=== PATIENT | female | born 1935 | race Caucasian/White ===

== ENCOUNTER 2017-07-05 14:45 | Emergency (ER) | payer BC, MEDICARE | END 2017-07-05 15:35 | disposition home or self-care (01) | LOC: ER 15:35 | DX: R21 Rash and other nonspecific skin eruption (principal); I10 Essential (primary) hypertension; E11.9 Type 2 diabetes mellitus without complications; I48.91 Unspecified atrial fibrillation | CPT/HCPCS: 99283 ==

== ENCOUNTER 2017-07-29 13:47 | Inpatient (IN) | payer BC ==
[2017-07-29 14:24] LABS: ADD MAN DIFF? NO
[2017-07-29 14:26] LABS: BASO # 0.1 x10^3/uL (0.0-0.2); BASO % 1 % (0-3); EOS % 11 % (0-3); HEMATOCRIT 31.1 % (36.0-47.0); HEMOGLOBIN 10.4 g/dL (12.0-15.5); LYMPH # 1.1 x10^3/uL (1.0-4.8); LYMPH % 12 % (24-48); MEAN CORPUSCULAR HEMOGLOBIN 31 pg (25-35); MEAN CORPUSCULAR HGB CONC 34 g/dL (31-37); MEAN CORPUSCULAR VOLUME 92 fL (79-100); MONO # 0.8 x10^3/uL (0.0-1.1); MONO % 8 % (0-9); NEUT # 6.7 x10^3uL (1.8-7.7); NEUT % 69 % (31-73); PLATELET COUNT 223 x10^3/uL (140-400); RED BLOOD COUNT 3.38 x10^6/uL (3.50-5.40); RED CELL DISTRIBUTION WIDTH 16.3 % (11.5-14.5); WHITE BLOOD COUNT 9.8 x10^3/uL (4.0-11.0)
[2017-07-29 14:37] LABS: INR 1.4 (0.8-1.1); PARTIAL THROMBOPLASTIN TIME 35 SEC (24-38); PROTHROMBIN TIME PATIENT 16.4 SEC (11.7-14.0)
[2017-07-29 14:45] LABS: ANION GAP 9 (6-14); BLOOD UREA NITROGEN 31 mg/dL (7-20); BUN/CREATININE RATIO 21 (6-20); CALCIUM 8.6 mg/dL (8.5-10.1); CARBON DIOXIDE 25 mmol/L (21-32); CHLORIDE 103 mmol/L (98-107); CREATININE 1.5 mg/dL (0.6-1.0); GFR 33.3; GLUCOSE 169 mg/dL (70-99); POTASSIUM 5.4 mmol/L (3.5-5.1); SODIUM 137 mmol/L (136-145)
[2017-07-29] MEDS: ATROPINE 0.5 MG/5 ML DISP.SYRIN. IV ×2 (14:45→15:00)
[2017-07-29 14:47] LABS: ETHANOL < 10 mg/dL (0-10)
[2017-07-29 14:51] LABS: ALBUMIN 3.4 g/dL (3.4-5.0); ALBUMIN/GLOBULIN RATIO 1.1 (1.0-1.7); ALK PHOS 74 U/L (46-116); ALT (SGPT) 49 U/L (14-59); AST (SGOT) 52 U/L (15-37); CREATINE KINASE 46 U/L (26-192); LIPASE 140 U/L (73-393); MAGNESIUM 2.2 mg/dL (1.8-2.4); TOTAL BILIRUBIN 0.5 mg/dL (0.2-1.0); TOTAL PROTEIN 6.4 g/dL (6.4-8.2)
[2017-07-29 14:54] LABS: NT-PRO BNP 4261 pg/mL (0-449)
[2017-07-29 14:56] LABS: THYROID STIM HORMONE (TSH) 3.923 uIU/mL (0.358-3.74)
[2017-07-29] MEDS: IV NORMAL SALINE 1000ML BAG 1,000 ML IV (14:57)
[2017-07-29 15:14] LABS: LACTIC ACID 2.7 mmol/L (0.4-2.0)
[2017-07-29] MEDS ORDERED: ONDANSETRON PF 4 MG/2 ML VIAL. IV (15:15)
[2017-07-29 15:18] LABS: DIG 0.6 ng/mL (0.9-2.0)
[2017-07-29] MEDS ORDERED: CALCIUM GLUCONATE 100 MG/ML VIAL for DOSE IN MG. IVP (16:00)
[2017-07-29] MEDS: NOREPINEPHRIN PREMIX 250 ML IV (16:15)
[2017-07-29] MEDS: CALCIUM GLUCONATE 1,000 MG/10 ML VIAL. IV (17:33)
[2017-07-29] MEDS: SODIUM POLYSTYRENE SULFONATE 15 GM/60 ML ORAL.SUSP. PO (17:33)
[2017-07-29] MEDS ORDERED: DEXTROSE 50% 25 GM / 50ML DISP.SYRIN. IV (18:45)
[2017-07-29] MEDS ORDERED: APIXABAN 5 MG TABLET. PO (21:00)
[2017-07-29] MEDS ORDERED: CEFPODOXIME PROXETIL 100 MG TABLET. PO (21:00)
[2017-07-29] MEDS ORDERED: METOPROLOL TART IMMED RELEASE 50 MG TABLET. PO (21:00)
[2017-07-29] MEDS: APIXABAN 2.5 MG TABLET. PO (21:26)
[2017-07-29] MEDS: SIMVASTATIN 10 MG TABLET PO (21:26)
[2017-07-29 21:29] LABS: POC GLUCOSE 144 mg/dL (70-99)
[2017-07-29 22:12] LABS: TROPONINI < 0.017 ng/mL (0.000-0.055)
[2017-07-30 03:49] LABS: ANION GAP 9 (6-14); BLOOD UREA NITROGEN 28 mg/dL (7-20); CALCIUM 8.6 mg/dL (8.5-10.1); CARBON DIOXIDE 24 mmol/L (21-32); CHLORIDE 105 mmol/L (98-107); CREATININE 1.5 mg/dL (0.6-1.0); GFR 33.3; GLUCOSE 132 mg/dL (70-99); POTASSIUM 4.3 mmol/L (3.5-5.1); SODIUM 138 mmol/L (136-145)
[2017-07-30 03:58] LABS: TROPONINI < 0.017 ng/mL (0.000-0.055)
[2017-07-30 04:03] LABS: BASO # 0.1 x10^3/uL (0.0-0.2); BASO % 1 % (0-3); EOS # 1.2 x10^3/uL (0.0-0.7); EOS % 12 % (0-3); HEMATOCRIT 30.6 % (36.0-47.0); HEMOGLOBIN 10.3 g/dL (12.0-15.5); LYMPH # 1.3 x10^3/uL (1.0-4.8); LYMPH % 13 % (24-48); MEAN CORPUSCULAR HEMOGLOBIN 31 pg (25-35); MEAN CORPUSCULAR HGB CONC 34 g/dL (31-37); MEAN CORPUSCULAR VOLUME 91 fL (79-100); MONO # 0.9 x10^3/uL (0.0-1.1); MONO % 9 % (0-9); NEUT # 6.6 x10^3uL (1.8-7.7); NEUT % 66 % (31-73); PLATELET COUNT 221 x10^3/uL (140-400); RED BLOOD COUNT 3.35 x10^6/uL (3.50-5.40); RED CELL DISTRIBUTION WIDTH 16.9 % (11.5-14.5)
[2017-07-30 04:06] LABS: ADD MAN DIFF? YES
[2017-07-30 04:32] LABS: LACTIC ACID 1.7 mmol/L (0.4-2.0)
[2017-07-30] MEDS: INSULIN ASPART 300 UNITS/3 ML INSULN.PEN SQ ×3 (08:00→17:00)
[2017-07-30 08:21] LABS: POC GLUCOSE 116 mg/dL (70-99)
[2017-07-30] MEDS: APIXABAN 2.5 MG TABLET. PO (09:52)
[2017-07-30] MEDS: PANTOPRAZOLE 40 MG TABLET.DR. PO (09:52)
[2017-07-30 10:05] LABS: % BANDS 1 % (0-9); % EOS 11 % (0-5); % LYMPHS 12 % (24-48); % MONOS 5 % (0-10); % MYELOS 1 % (0-0); % SEGS 70 % (35-66)
[2017-07-30 10:06] LABS: PLT ESTIMATE ADEQUATE (ADEQUATE)
[2017-07-30 11:54] LABS: POC GLUCOSE 126 mg/dL (70-99)
[2017-07-30 16:30] LABS: POC GLUCOSE 123 mg/dL (70-99)
[2017-07-30] MEDS: SIMVASTATIN 10 MG TABLET PO (20:18)
[2017-07-30 21:23] LABS: POC GLUCOSE 131 mg/dL (70-99)
[2017-07-31] MEDS: METOPROLOL TART IMMED RELEASE 25 MG TABLET. PO ×3 (02:51→20:39)
[2017-07-31 07:37] LABS: POC GLUCOSE 124 mg/dL (70-99)
[2017-07-31] MEDS: INSULIN ASPART 300 UNITS/3 ML INSULN.PEN SQ ×3 (08:00→16:54)
[2017-07-31] MEDS: PANTOPRAZOLE 40 MG TABLET.DR. PO (08:20)
[2017-07-31 11:47] LABS: POC GLUCOSE 181 mg/dL (70-99)
[2017-07-31] MEDS: DIGOXIN IV 500 MCG/2 ML AMPUL. IV (16:51)
[2017-07-31 17:07] LABS: POC GLUCOSE 139 mg/dL (70-99)
[2017-07-31] MEDS: SIMVASTATIN 10 MG TABLET PO (20:39)
[2017-07-31 21:22] LABS: POC GLUCOSE 142 mg/dL (70-99)
[2017-08-01 07:27] LABS: POC GLUCOSE 120 mg/dL (70-99)
[2017-08-01] MEDS: PANTOPRAZOLE 40 MG TABLET.DR. PO (07:30)
[2017-08-01] MEDS: INSULIN ASPART 300 UNITS/3 ML INSULN.PEN SQ ×3 (08:00→17:00)
[2017-08-01] MEDS: METOPROLOL TART IMMED RELEASE 25 MG TABLET. PO ×3 (09:00→20:59)
[2017-08-01] MEDS ORDERED: fentaNYL PF VIAL 250 MCG/5 ML VIAL (09:40)
[2017-08-01] MEDS ORDERED: MIDAZOLAM HCL/PF 5 MG/5 ML VIAL. (09:40)
[2017-08-01] MEDS ORDERED: LIDOCAINE 2%/EPI 1:100,000 20 ML VIAL. (09:56)
[2017-08-01] MEDS: LIDOCAINE 2%/EPI 1:100,000 20 ML VIAL. IJ (10:30)
[2017-08-01] MEDS: BACITRACIN 50,000 UNIT in IV NORMAL SALINE 250ML 250 ML IRR (10:46)
[2017-08-01] MEDS: fentaNYL PF VIAL 250 MCG/5 ML VIAL IV (10:47)
[2017-08-01] MEDS: MIDAZOLAM HCL/PF 5 MG/5 ML VIAL. IV (10:48)
[2017-08-01] MEDS: dilTIAZem IV PUSH 25 MG/5 ML VIAL IVP (11:15)
[2017-08-01] MEDS: DIGOXIN IV 500 MCG/2 ML AMPUL. IV (12:18)
[2017-08-01] MEDS: dilTIAZem VIAL 125 MG in IV DEXTROSE 5% 100 ML IV ×2 (12:19→22:31)
[2017-08-01 12:20] LABS: ANION GAP 10 (6-14); BLOOD UREA NITROGEN 15 mg/dL (7-20); CALCIUM 8.6 mg/dL (8.5-10.1); CARBON DIOXIDE 26 mmol/L (21-32); CHLORIDE 106 mmol/L (98-107); CREATININE 1.3 mg/dL (0.6-1.0); GFR 39.3; GLUCOSE 157 mg/dL (70-99); MAGNESIUM 1.9 mg/dL (1.8-2.4); POTASSIUM 3.7 mmol/L (3.5-5.1); SODIUM 142 mmol/L (136-145)
[2017-08-01 12:40] LABS: POC GLUCOSE 159 mg/dL (70-99)
[2017-08-01] MEDS ORDERED: METOPROLOL TART IMMED RELEASE 50 MG TABLET. PO (13:00)
[2017-08-01] MEDS: IV NORMAL SALINE 1000ML BAG 1,000 ML IV (15:05)
[2017-08-01 17:40] LABS: POC GLUCOSE 118 mg/dL (70-99)
[2017-08-01] MEDS: SIMVASTATIN 10 MG TABLET PO (20:59)
[2017-08-01 21:05] LABS: POC GLUCOSE 130 mg/dL (70-99)
[2017-08-02] MEDS: HYDROcodone/APAP 7.5/325MG 1 TAB TABLET PO (00:55)
[2017-08-02] MEDS: METOPROLOL TART IMMED RELEASE 25 MG TABLET. PO ×3 (00:55→11:16)
[2017-08-02] MEDS: PANTOPRAZOLE 40 MG TABLET.DR. PO (06:00)
[2017-08-02 07:33] LABS: POC GLUCOSE 147 mg/dL (70-99)
[2017-08-02] MEDS: INSULIN ASPART 300 UNITS/3 ML INSULN.PEN SQ ×3 (08:00→17:12)
[2017-08-02] MEDS: ONDANSETRON PF 4 MG/2 ML VIAL. IV (09:17)
[2017-08-02] MEDS: APIXABAN 5 MG TABLET. PO ×2 (11:15→19:08)
[2017-08-02 12:42] LABS: POC GLUCOSE 175 mg/dL (70-99)
[2017-08-02 17:10] LABS: POC GLUCOSE 125 mg/dL (70-99)
[2017-08-02] MEDS: SIMVASTATIN 10 MG TABLET PO (20:15)
[2017-08-02] MEDS: METOPROLOL TART IMMED RELEASE 50 MG TABLET. PO (20:17)
[2017-08-02 20:32] LABS: POC GLUCOSE 143 mg/dL (70-99)
[2017-08-03 08:39] LABS: POC GLUCOSE 127 mg/dL (70-99)
[2017-08-03] MEDS: INSULIN ASPART 300 UNITS/3 ML INSULN.PEN SQ ×3 (08:44→17:33)
[2017-08-03] MEDS: APIXABAN 5 MG TABLET. PO ×2 (08:45→21:08)
[2017-08-03] MEDS: PANTOPRAZOLE 40 MG TABLET.DR. PO (08:46)
[2017-08-03] MEDS: METOPROLOL TART IMMED RELEASE 50 MG TABLET. PO ×2 (08:46→21:09)
[2017-08-03] MEDS ORDERED: ALPRAZolam 0.25 MG TABLET PO (10:00)
[2017-08-03 11:42] LABS: POC GLUCOSE 169 mg/dL (70-99)
[2017-08-03] MEDS: DIGOXIN 125 MCG TABLET. PO (14:16)
[2017-08-03 16:40] LABS: POC GLUCOSE 128 mg/dL (70-99)
[2017-08-03] MEDS: DIGOXIN IV 500 MCG/2 ML AMPUL. IV (20:13)
[2017-08-03] MEDS ORDERED: METOPROLOL TART IMMED RELEASE 50 MG TABLET. PO (21:00)
[2017-08-03] MEDS: SIMVASTATIN 10 MG TABLET PO (21:08)
[2017-08-03 21:13] LABS: POC GLUCOSE 129 mg/dL (70-99)
[2017-08-04 05:17] LABS: ADD MAN DIFF? NO
[2017-08-04 05:34] LABS: BASO # 0.1 x10^3/uL (0.0-0.2); BASO % 1 % (0-3); EOS # 0.8 x10^3/uL (0.0-0.7); EOS % 7 % (0-3); HEMATOCRIT 29.8 % (36.0-47.0); HEMOGLOBIN 9.8 g/dL (12.0-15.5); LYMPH # 1.3 x10^3/uL (1.0-4.8); LYMPH % 12 % (24-48); MEAN CORPUSCULAR HEMOGLOBIN 30 pg (25-35); MEAN CORPUSCULAR HGB CONC 33 g/dL (31-37); MEAN CORPUSCULAR VOLUME 91 fL (79-100); MONO # 1.2 x10^3/uL (0.0-1.1); MONO % 11 % (0-9); NEUT # 7.5 x10^3uL (1.8-7.7); NEUT % 69 % (31-73); PLATELET COUNT 211 x10^3/uL (140-400); RED BLOOD COUNT 3.26 x10^6/uL (3.50-5.40); RED CELL DISTRIBUTION WIDTH 16.3 % (11.5-14.5); WHITE BLOOD COUNT 10.9 x10^3/uL (4.0-11.0)
[2017-08-04 05:51] LABS: ANION GAP 8 (6-14); BLOOD UREA NITROGEN 26 mg/dL (7-20); CALCIUM 8.1 mg/dL (8.5-10.1); CARBON DIOXIDE 28 mmol/L (21-32); CHLORIDE 105 mmol/L (98-107); CREATININE 1.3 mg/dL (0.6-1.0); GFR 39.3; GLUCOSE 136 mg/dL (70-99); POTASSIUM 4.1 mmol/L (3.5-5.1); SODIUM 141 mmol/L (136-145)
[2017-08-04] MEDS: PANTOPRAZOLE 40 MG TABLET.DR. PO (06:21)
[2017-08-04] MEDS: INSULIN ASPART 300 UNITS/3 ML INSULN.PEN SQ ×2 (08:00→12:00)
[2017-08-04 08:01] LABS: POC GLUCOSE 121 mg/dL (70-99)
[2017-08-04] MEDS: DOCUSATE SODIUM 100 MG CAPSULE. PO (10:15)
[2017-08-04] MEDS: APIXABAN 5 MG TABLET. PO (10:15)
[2017-08-04] MEDS: METOPROLOL TART IMMED RELEASE 50 MG TABLET. PO (10:16)
[2017-08-04] MEDS: ANTI-COAG MONITOR BY PHARMACY. MC (10:58)
[2017-08-04 11:43] LABS: POC GLUCOSE 129 mg/dL (70-99)
[2017-08-04] MEDS ORDERED: METOPROLOL TART IMMED RELEASE 50 MG TABLET. PO (21:00)
== END 2017-08-04 17:48 | disposition home or self-care (01) | DRG 242 ==
LOC: ER 13:47 → ED HOLD 15:11 → 2 NORTH 18:38
PROC: 0JH606Z Insertion of Pacemaker, Dual Chamber into Chest Subcutaneous Tissue and Fascia, Open Approach (ICD-10-PCS; principal; 2017-08-01)
PROC: 02H63JZ Insertion of Pacemaker Lead into Right Atrium, Percutaneous Approach (ICD-10-PCS; 2017-08-01)
PROC: 02HK3JZ Insertion of Pacemaker Lead into Right Ventricle, Percutaneous Approach (ICD-10-PCS; 2017-08-01)
DX: I49.5 Sick sinus syndrome (principal); I50.31 Acute diastolic (congestive) heart failure; E11.22 Type 2 diabetes mellitus with diabetic chronic kidney disease; E87.5 Hyperkalemia; I48.1 Persistent atrial fibrillation; I13.0 Hypertensive heart and chronic kidney disease with heart failure and stage 1 through stage 4 chronic kidney disease, or unspecified chronic kidney disease; I50.9 Heart failure, unspecified; E03.9 Hypothyroidism, unspecified; E78.5 Hyperlipidemia, unspecified; I70.0 Atherosclerosis of aorta; K21.9 Gastro-esophageal reflux disease without esophagitis; K57.90 Diverticulosis of intestine, part unspecified, without perforation or abscess without bleeding; N18.3 Chronic kidney disease, stage 3 (moderate); Z79.01 Long term (current) use of anticoagulants; Z82.49 Family history of ischemic heart disease and other diseases of the circulatory system; Z86.718 Personal history of other venous thrombosis and embolism; Z95.0 Presence of cardiac pacemaker; M19.90 Unspecified osteoarthritis, unspecified site
CPT/HCPCS: 33208; 36415; 71045; 71046; 80048; 80053; 80162; 82550; 82962; 83605; 83690; 83735; 83880; 84443; 84484; 85007; 85025; 85610; 85730; 93005; 96361; 96374; 97161-GP; 97165-GO; 97535-GO; 99152; 99153; 99291; 99291-25; C1785; C1898; G0480; J0461; J0610; J0690; J1160; J1815; J2250; J2405; J3010; J3490; J7030; J7050

== ENCOUNTER → 2017-09-28 | Outpatient (CLI) | payer BC | END | disposition home or self-care (01) | LOC: RAD 13:10 | DX: T82.120A Displacement of cardiac electrode, initial encounter (principal) | CPT/HCPCS: 71046 ==

== ENCOUNTER 2017-10-03 06:26 | Observation (INO) | payer BC ==
[2017-10-03] MEDS ORDERED: LIDOCAINE 2%/EPI 1:100,000 20 ML VIAL. (07:14)
[2017-10-03 07:34] LABS: HEMATOCRIT 29.3 % (36.0-47.0); HEMOGLOBIN 9.8 g/dL (12.0-15.5); MEAN CORPUSCULAR HEMOGLOBIN 30 pg (25-35); MEAN CORPUSCULAR HGB CONC 33 g/dL (31-37); MEAN CORPUSCULAR VOLUME 88 fL (79-100); PLATELET COUNT 232 x10^3/uL (140-400); RED BLOOD COUNT 3.32 x10^6/uL (3.50-5.40); RED CELL DISTRIBUTION WIDTH 14.6 % (11.5-14.5); WHITE BLOOD COUNT 10.7 x10^3/uL (4.0-11.0)
[2017-10-03 07:45] LABS: PROTHROMBIN TIME PATIENT 12.4 SEC (11.7-14.0)
[2017-10-03 07:56] LABS: ANION GAP 11 (6-14); BLOOD UREA NITROGEN 31 mg/dL (7-20); CALCIUM 8.8 mg/dL (8.5-10.1); CARBON DIOXIDE 24 mmol/L (21-32); CHLORIDE 106 mmol/L (98-107); CREATININE 1.6 mg/dL (0.6-1.0); GFR 30.9; GLUCOSE 135 mg/dL (70-99); POTASSIUM 3.9 mmol/L (3.5-5.1); SODIUM 141 mmol/L (136-145)
[2017-10-03] MEDS ORDERED: MIDAZOLAM HCL/PF 2 MG/2 ML VIAL. (08:08)
[2017-10-03] MEDS ORDERED: fentaNYL PF VIAL 100 MCG/2 ML VIAL (08:08)
[2017-10-03] MEDS: BACITRACIN 50,000 UNIT in IV NORMAL SALINE 250ML 250 ML IRR (08:48)
[2017-10-03] MEDS: LIDOCAINE 2%/EPI 1:100,000 20 ML VIAL. IJ (08:48)
[2017-10-03] MEDS: MIDAZOLAM HCL/PF 2 MG/2 ML VIAL. IV (08:49)
[2017-10-03] MEDS: fentaNYL PF VIAL 100 MCG/2 ML VIAL IV (08:49)
[2017-10-03] MEDS ORDERED: NO ANTICOAGULANT THERAPY. MC (11:15)
[2017-10-03] MEDS ORDERED: ALPRAZolam 0.25 MG TABLET PO (11:30)
[2017-10-03] MEDS: METOPROLOL TART IMMED RELEASE 50 MG TABLET. PO ×2 (12:42→21:57)
[2017-10-03] MEDS: metFORMIN 500 MG TABLET PO ×2 (12:42→17:00)
[2017-10-03] MEDS: PANTOPRAZOLE 40 MG TABLET.DR. PO (12:42)
[2017-10-03] MEDS: HYDROcodone/APAP 7.5/325MG 1 TAB TABLET PO (18:13)
[2017-10-03] MEDS: SIMVASTATIN 10 MG TABLET PO (21:54)
[2017-10-04] MEDS: PANTOPRAZOLE 40 MG TABLET.DR. PO (06:25)
[2017-10-04] MEDS: metFORMIN 500 MG TABLET PO (08:49)
[2017-10-04] MEDS: DIGOXIN 125 MCG TABLET. PO (08:50)
[2017-10-04] MEDS: METOPROLOL TART IMMED RELEASE 50 MG TABLET. PO (08:53)
[2017-10-04] MEDS: HYDROcodone/APAP 7.5/325MG 1 TAB TABLET PO (17:09)
== END 2017-10-04 18:00 | disposition home or self-care (01) ==
LOC: CCL 06:26 → 2 SOUTH 07:30
DX: I49.5 Sick sinus syndrome (principal); I48.91 Unspecified atrial fibrillation; F41.9 Anxiety disorder, unspecified; Z79.84 Long term (current) use of oral hypoglycemic drugs
CPT/HCPCS: 33222; 36415; 71045; 71046; 80048; 85027; 85610; 96365; 96375; 99152; 99153; G0378; G0379; J0690; J2250; J3010; J3490; J7050

== ENCOUNTER → 2017-11-29 | Outpatient (CLI) | payer BC | END | disposition home or self-care (01) | LOC: ECHO 08:55 | DX: I08.1 Rheumatic disorders of both mitral and tricuspid valves (principal); I27.20 Pulmonary hypertension, unspecified | CPT/HCPCS: 93306 ==

== ENCOUNTER 2018-01-30 08:47 | Day surgery (SDC) | payer BC ==
[~2018-01-30 08:47] MED LIST: MORPHINE SULFATE 2 MG/ML DISP.SYRIN. IV; ONDANSETRON PF 4 MG/2 ML VIAL. IV; PROCHLORPERAZINE 10 MG/2 ML VIAL. IV; fentaNYL PF VIAL 100 MCG/2 ML VIAL IV
[2018-01-30 09:26] LABS: POC GLUCOSE 116 mg/dL (70-99)
[2018-01-30] MEDS: IV RINGERS,LACTATED 1000ML 1,000 ML IV (09:27)
[2018-01-30] MEDS ORDERED: PROPOFOL 40 ML IV (10:04)
[2018-01-30] MEDS ORDERED: LIDOCAINE 2% PF Vial for OR 5 ML VIAL. (10:04)
[2018-01-30] MEDS: BENZOCAINE ONE 20% MUCOSAL SPRAY. MM ×2 (10:41→10:45)
[2018-01-30] MEDS ORDERED: BENZOCAINE ONE 20% MUCOSAL SPRAY. (10:41)
[2018-01-30] MEDS ORDERED: LIDOCAINE 2% TOPICAL JELLY 5GM TUBE. TP (10:42)
[2018-01-30] MEDS: LIDOCAINE 2% VISCOUS 15 ML SOLUTION. SWSW (10:42)
[2018-01-30] MEDS: LIDOCAINE 2% JELLY 6ML IN APPLICATOR. MM (10:45)
[2018-01-30] MEDS: LIDOCAINE 2% TOPICAL JELLY 5GM TUBE. TP (10:45)
[2018-01-30] MEDS: LIDOCAINE 1% PF 2 ML VIAL. ID (10:45)
== END 2018-01-30 12:44 | disposition home or self-care (01) ==
LOC: SURG 08:47
DX: I48.1 Persistent atrial fibrillation (principal); I08.1 Rheumatic disorders of both mitral and tricuspid valves; I13.0 Hypertensive heart and chronic kidney disease with heart failure and stage 1 through stage 4 chronic kidney disease, or unspecified chronic kidney disease; E11.22 Type 2 diabetes mellitus with diabetic chronic kidney disease; N18.3 Chronic kidney disease, stage 3 (moderate); I50.20 Unspecified systolic (congestive) heart failure; Z95.0 Presence of cardiac pacemaker; Z79.84 Long term (current) use of oral hypoglycemic drugs; Z79.899 Other long term (current) drug therapy
CPT/HCPCS: 82962; 92960; 93005; 93312; 93320; 93325; J2001; J2704

== ENCOUNTER 2018-02-21 07:32 | Outpatient (CLI) | payer BC ==
[~2018-02-21] VITALS: Ht 165.1 cm; Wt 77.1 kg
[2018-02-21] VITALS (11 sets, daily range): BP systolic 99–159; BP diastolic 63–105
[~2018-02-21 07:32] MED LIST changes: +ALPR0.254 PO; +APIX5TAB PO; +CEFP100T PO; +DIGO125T PO; +DILT120C80 PO; +DILT240C2 PO; +DOXY100C2 PO; +FURO-68 PO; +HYDR-2762 PO; +METF500T5 PO; +METO-247 PO; +METO100T7 PO; +METO50TA6 PO; +METR500T PO; -MORPHINE SULFATE 2 MG/ML DISP.SYRIN. IV; -ONDANSETRON PF 4 MG/2 ML VIAL. IV; +PANT40TA5 PO; +PRED50TA PO; -PROCHLORPERAZINE 10 MG/2 ML VIAL. IV; +SIMV10TA3 PO; -fentaNYL PF VIAL 100 MCG/2 ML VIAL IV
[2018-02-21] MEDS ORDERED: IODIXANOL 320 MG/ML 100 ML VIAL. ONE (07:34)
[2018-02-21] MEDS ORDERED: LIDOCAINE 1% PF 30 ML VIAL. ONE (07:34)
[2018-02-21] MEDS ORDERED: HEPARIN for ARTERIAL LINE 1,500 ML ONE (07:34)
[2018-02-21] MEDS ORDERED: METO200T46 PO (07:47)
[2018-02-21 08:09] LABS: HEMATOCRIT 31.5 % (36.0-47.0); HEMOGLOBIN 10.2 g/dL (12.0-15.5); RED BLOOD COUNT 3.75 x10^6/uL (3.50-5.40); RED CELL DISTRIBUTION WIDTH 16.5 % (11.5-14.5); WHITE BLOOD COUNT 7.3 x10^3/uL (4.0-11.0)
[2018-02-21 08:19] LABS: CALCIUM 8.6 mg/dL (8.5-10.1); CREATININE 1.9 mg/dL (0.6-1.0); GFR 25.3; POTASSIUM 4.6 mmol/L (3.5-5.1)
[2018-02-21 08:20] LABS: PROTHROMBIN TIME PATIENT 14.3 SEC (11.7-14.0)
[2018-02-21] MEDS ORDERED: MIDAZOLAM HCL/PF 2 MG/2 ML VIAL. ONE (08:59)
[2018-02-21] MEDS ORDERED: fentaNYL PF VIAL 100 MCG/2 ML VIAL ONE (08:59)
[2018-02-21] MEDS ORDERED: HEPARIN for IV BOLUS 10,000 UNIT/10 ML VIAL. ONE (08:59)
[2018-02-21] MEDS ORDERED: NITROGLYCERIN 200 MCG/2 ML SYRINGE FOR CATH/VASC LAB. ONE (09:00)
[2018-02-21] MEDS ORDERED: VERAPAMIL 5 MG/2 ML VIAL. ONE (09:00)
[2018-02-21] MEDS ORDERED: fentaNYL PF VIAL 100 MCG/2 ML VIAL IV ONE (09:45)
[2018-02-21] MEDS ORDERED: IODIXANOL 320 MG/ML 100 ML VIAL. IART ONE (09:45)
[2018-02-21] MEDS ORDERED: CONTRAST GIVEN. MC PRN (09:45)
[2018-02-21] MEDS ORDERED: LIDOCAINE 1% PF 30 ML VIAL. INJ ONE (09:45)
[2018-02-21] MEDS ORDERED: MIDAZOLAM HCL/PF 2 MG/2 ML VIAL. IV ONE (09:45)
[2018-02-21] MEDS ORDERED: APIX5TAB PO (11:05)
[2018-02-21] MEDS ORDERED: SACU1TAB PO (11:05)
[2018-02-21] MEDS ORDERED: FURO40TA4 PO (11:05)
[2018-02-21] MEDS ORDERED: AMIO200T4 PO (11:05)
--- NOTE | 2018-02-21 11:05 | CARD ---
MR#: [id number] Date of Study: 02/21/2018 Ordering Physician: TING PEREZ, Referring Physician: TING PEREZ, Tech: RT Mireya (R) APPROVED REPORT Technologist: Sofia Zayas RT (R) Nurse: Aniyah Ayala R.N. Procedure(s) performed: Moderate sedation: 32 minutes LHC, RHC, Coronary angiography HISTORY The patient is a 82 year-old female with a history of : hypertension, dyslipidemia. INDICATION The indication(s) include : atrial fibrillation, dyspnea, LV dysfunction. EF 25% . PROCEDURE NARRATIVE CLINICAL HISTORY: 82 y.o woman with persistent exertional dyspnea and heart failure symptoms despite medication optimiz ation. The patient was brought electively to the cardiac catheterization lab. A timeout was performed confi rming the patient's name, date of , procedure, and site of procedure. All necessary personnel w ere wearing the appropriate protective equipment and radiation monitor devices. After explaining the risks and benefits of the procedure and alternatives, informed consent was obtained. (See nursing no ravinder for medications administered). The right groin was sterilely prepped and draped in the usual fas hion. The right groin was infiltrated with 20 mL of 2% lidocaine for subcutaneous anesthesia. A 6 F sheath was inserted into the right femoral artery without difficulty via the modified seldinger techn ique with an 18G needle and a J-tipped guidewire. Next, an 8Fr sheath was inserted in the right commo n femoral vein in similar fashion without difficulty. A PA catheter was then advanced through the right heart chambers, pressures and saturations were obta ined. Subsequently, right and left coronary angiography was performed using standard JR4 and JL4 diag nostic catheters. Left ventricular end diastolic pressure was obtained with a pigtail catheter and p ullback was performed. HEMODYNAMICS: LVEDP 21 mm Hg AO: 110/70 *No gradient on LV to aortic pullback. PCWP: 25 mm Hg PA: 54/34/29 RV: 57/10/16 RA: 15 mm Hg Sandeep: 3.5 L/min PA saturation: 55% FA saturation: 98% LEFT VENTRICULOGRAM: Deferred due to renal insufficiency. CORONARY ANGIOGRAPHY: LM is a large caliber vessel with normal angiographic appearance. LAD large caliber vessel with normal angiographic appearance. LCx is a large caliber dominant vessel with normal angiographic appearance. RCA is a small caliber non-dominant vessel with normal angiographic appearance. CLOSURE: Right femoral arterial sheath was removed and hemostasis was achieved with an angioseal device. Venou s sheath was removed with manual compression. No complications. Contrast dose: 26 ml Conclusion 1. Biventricular pressure overload. 2. Low cardiac output. 3. No significant coronary disease. Recommendations Aggressive Medical Therapy Signed by : Ting Perez, Electronically Approved : 02/21/2018 11:04:07
--- NOTE | 2018-02-21 11:16 | PDOC ---
MODERATE SEDATION ASSESSMENT RISKS/ALTERNATIVES Risks/Alternatives Risks and alternatives of this type of sedation and procedure discussed with: RISK/ALTERNATIVES: Patient H & P ON CHART H & P H & P on chart and reviewed for co-morbid conditions and appropriate labs. H&P ON CHART: Yes STATUS PREG STATUS ASSESSED: N/A MEDS/ALLERGIES REVIEWED Meds/Allergies Reviewed Medications and Allergies including time and route of recently administered narcotics and sedatives. MEDS/ALLERGIES REVIEWED: Yes ASA RATING ASA RATING: I AIRWAY ASSESSMENT Airway Assessment Airway patency, oral function limitations, presence of caps, crowns, dentures, partials, and ability to extend neck assessed. AIRWAY ASSESSMENT: Yes MALLAMPATI SCORE MALLAMPATI SCORE: II PRE-SEDATION ASSESSMENT PRE-SEDATION ASSESSMENT: Yes TING LEGGETT MD Feb 21, 2018 11:16
[2018-02-21] MEDS ORDERED: NITROGLYCERIN SUBLINGUAL 0.4 MG BOTTLE OF 25. SL PRN (11:30)
[2018-02-21] MEDS ORDERED: 0.9 % SODIUM CHLORIDE 10 ML DISP.SYRIN. IV PRN (11:30)
[2018-02-21] MEDS ORDERED: IPRATRPIUM/ALBUTEROL 0.5/2.5MG 3 ML NEBU. NEB ONE (13:45)
[2018-02-21] MEDS ORDERED: FUROSEMIDE 20 MG/2 ML VIAL. IVP ONE (13:45)
[2018-02-21] MEDS ORDERED: FUROSEMIDE 40 MG/4 ML VIAL. ONE (13:56)
[2018-02-21] MEDS ORDERED: FUROSEMIDE 40 MG/4 ML VIAL. IVP ONE (14:15)
== END 2018-02-21 14:15 | disposition home or self-care (01) ==
LOC: CCL 07:32
PROVIDERS: ATTEND Internal Medicine Cardiovascular Disease
DX: I48.1 Persistent atrial fibrillation (principal); E78.5 Hyperlipidemia, unspecified; I13.0 Hypertensive heart and chronic kidney disease with heart failure and stage 1 through stage 4 chronic kidney disease, or unspecified chronic kidney disease; E11.22 Type 2 diabetes mellitus with diabetic chronic kidney disease; N18.3 Chronic kidney disease, stage 3 (moderate); K57.92 Diverticulitis of intestine, part unspecified, without perforation or abscess without bleeding; I50.20 Unspecified systolic (congestive) heart failure; Z79.899 Other long term (current) drug therapy; Z79.84 Long term (current) use of oral hypoglycemic drugs; Z95.0 Presence of cardiac pacemaker; Z90.49 Acquired absence of other specified parts of digestive tract; E66.9 Obesity, unspecified; Z68.28 Body mass index [BMI] 28.0-28.9, adult
CPT/HCPCS: 36415; 80048; 83880; 85027; 85610; 85730; 93460; 94640; 99152; 99153; C1769; C1771; C1773; C1892; G0269; J1644; J1940; J2250; J3010; J7620

== ENCOUNTER 2018-02-24 03:47 | Emergency (ER) | payer BC ==
[~2018-02-24] VITALS: Ht 170.2 cm; Wt 86.2 kg
[~2018-02-24 03:47] MED LIST changes: +AMIO200T4 PO; +FURO40TA4 PO; +METF500T16 PO; -METF500T5 PO; +METO200T46 PO; +SACU1TAB PO
--- NOTE | 2018-02-24 04:32 | PHYS DOC ---
Past Medical History Past Medical History: A-Fib, CHF, Diabetes-Type II, Hypertension Past Surgical History: Cholecystectomy Additional Past Surgical Histo: HERNIA Smoking: Cigarettes (The patient is a nonsmoker.) Alcohol Use: None Drug Use: None Adult General Chief Complaint Chief Complaint: ALLERGIC REACTION HPI HPI Patient is an 82-year-old female who presents to the emergency department for evaluation. She underwent a diagnostic cardiac catheterization about 3 days ago , which did not show any obstructive coronary disease but she does have fairly advanced congestive heart failure. She states that she was unable to sleep overnight, and just hasn't felt well. She denies any focal pain. She denies any pain in her groin, dizziness or lightheadedness, shortness of breath or chest pain, abdominal pain, nausea, vomiting. She just didn't feel well. There are no alleviating, or exacerbating factors to her symptoms. Review of Systems Review of Systems Constitutional: Denies fever or chills [] Eyes: Denies change in visual acuity, redness, or eye pain [] HENT: Denies nasal congestion or sore throat [] Respiratory: Denies cough or shortness of breath, different than baseline [] Cardiovascular: The patient denies any shortness of breath, chest pain, palpitations, or orthopnea [] GI: Denies abdominal pain, nausea, vomiting, bloody stools or diarrhea [] : Denies dysuria or hematuria [] Musculoskeletal: Denies back pain or joint pain [] Integument: Denies rash or skin lesions, denies itchiness or hives. [] Neurologic: Denies headache, focal weakness or sensory changes [] Endocrine: Denies polyuria or polydipsia [] All other systems were reviewed and found to be within normal limits, except as documented in this note. Current Medications Current Medications Current Medications Medications (Trade) Dose Ordered Sig/Arlene Start Time Stop Time Status Last Admin Dose Admin Lorazepam (Ativan) 0.5 mg 1X ONCE 02/24/18 05:00 02/24/18 05:01 DC 02/24/18 05:02 0.5 MG Sodium Chloride 500 ml @ 500 mls/hr 1X ONCE 02/24/18 05:00 02/24/18 05:59 DC 02/24/18 05:00 500 MLS/HR Allergies Allergies Allergies Coded Allergies Type Severity Reaction Last Updated Verified No Known Drug Allergies 01/30/18 No Physical Exam Physical Exam PHYSICAL EXAM: CONSTITUTIONAL: Well developed, well nourished HEAD: normocephalic, atraumatic EENT: PERRL, EOMI. Conjunctivae normal color, sclerae non-icteric; moist mucous membranes. NECK: Supple, non-tender; no meningismus. LUNGS: Lungs CTA, breathing even and unlabored. Normal air movement. HEART: Regular rate and rhythm, no murmur CHEST: No deformity; non-tender ABDOMEN: The abdomen is soft, and non-tender, no masses or bruits. EXTREM: Normal ROM; no deformity, no calf tenderness. Normal pulses palpable in all extremities. There is no pedal edema. There is no tenderness to palpation and minimal bruising noted in the right groin. The femoral artery is palpable and nontender. SKIN: No rash; no diaphoresis NEURO: Alert; normal speech and cognition; CN's grossly intact; strength grossly intact without focal deficit. BACK: No CVA TTP. Current Patient Data Vital Signs Vital Signs Date Time Temp Pulse Resp B/P (MAP) Pulse Ox O2 Delivery O2 Flow Rate FiO2 02/24/18 04:37 98.3 76 16 159/118 (132) 98 Room Air 98.3 Lab Values Laboratory Tests Test 02/24/18 04:18 02/24/18 04:56 Urine Collection Type Unknown Urine Color Yellow Urine Clarity Clear Urine pH 8.0 Urine Specific [place] 1.015 Urine Protein 30 mg/dL (NEG-TRACE) Urine Glucose (UA) Negative mg/dL (NEG) Urine Ketones (Stick) Negative mg/dL (NEG) Urine Blood Negative (NEG) Urine Nitrite Negative (NEG) Urine Bilirubin Negative (NEG) Urine Urobilinogen Dipstick 0.2 mg/dL (0.2 mg/dL) Urine Leukocyte Esterase Moderate (NEG) Urine RBC 0 /HPF (0-2) Urine WBC 1-4 /HPF (0-4) Urine Squamous Epithelial Cells Mod /LPF Urine Bacteria Few /HPF (0-FEW) White Blood Count 7.6 x10^3/uL (4.0-11.0) Red Blood Count 3.65 x10^6/uL (3.50-5.40) Hemoglobin 10.1 g/dL (12.0-15.5) L Hematocrit 30.7 % (36.0-47.0) L Mean Corpuscular Volume 84 fL (79-100) Mean Corpuscular Hemoglobin 28 pg (25-35) Mean Corpuscular Hemoglobin Concent 33 g/dL (31-37) Red Cell Distribution Width 17.2 % (11.5-14.5) H Platelet Count 190 x10^3/uL (140-400) Neutrophils (%) (Auto) 63 % (31-73) Lymphocytes (%) (Auto) 19 % (24-48) L Monocytes (%) (Auto) 13 % (0-9) H Eosinophils (%) (Auto) 3 % (0-3) Basophils (%) (Auto) 1 % (0-3) Neutrophils # (Auto) 4.8 x10^3uL (1.8-7.7) Lymphocytes # (Auto) 1.4 x10^3/uL (1.0-4.8) Monocytes # (Auto) 1.0 x10^3/uL (0.0-1.1) Eosinophils # (Auto) 0.3 x10^3/uL (0.0-0.7) Basophils # (Auto) 0.1 x10^3/uL (0.0-0.2) Sodium Level 140 mmol/L (136-145) Potassium Level 5.0 mmol/L (3.5-5.1) Chloride Level 105 mmol/L (98-107) Carbon Dioxide Level 27 mmol/L (21-32) Anion Gap 8 (6-14) Blood Urea Nitrogen 37 mg/dL (7-20) H Creatinine 1.9 mg/dL (0.6-1.0) H Estimated GFR (Cockcroft-Gault) 25.3 BUN/Creatinine Ratio 19 (6-20) Glucose Level 132 mg/dL (70-99) H Lactic Acid Level 1.4 mmol/L (0.4-2.0) Calcium Level 8.8 mg/dL (8.5-10.1) Phosphorus Level 4.7 mg/dL (2.6-4.7) Magnesium Level 2.4 mg/dL (1.8-2.4) Total Bilirubin 0.8 mg/dL (0.2-1.0) Aspartate Amino Transferase (AST) 14 U/L (15-37) L Alanine Aminotransferase (ALT) 18 U/L (14-59) Alkaline Phosphatase 64 U/L (46-116) Creatine Kinase 52 U/L (26-192) Creatine Kinase MB (Mass) 0.7 ng/mL (0.0-3.6) Creatine Kinase MB Relative Index % (0-4) Troponin I Quantitative < 0.017 ng/mL (0.000-0.055) BH-Feg-Z-Type Natriuretic Peptide 2315 pg/mL (0-449) H Total Protein 7.5 g/dL (6.4-8.2) Albumin 3.7 g/dL (3.4-5.0) Albumin/Globulin Ratio 1.0 (1.0-1.7) Thyroid Stimulating Hormone (TSH) 5.877 uIU/mL (0.358-3.74) H Free Thyroxine 1.13 ng/dL (0.76-1.46) Digoxin Level < 0.2 ng/mL (0.9-2.0) L Digoxin Last Dose Date Unknown Digoxin Last Dose Time Unknown Laboratory Tests 02/24/18 04:56 Laboratory Tests 02/24/18 04:56 EKG EKG Atrial fibrillation with interspersed ventricular paced beats,, ventricular rate is approximately 80 bpm, with QRS widening a left axis deviation without acute ischemic ST/T changes. Radiology/Procedures Radiology/Procedures [PROCEDURE: PORTABLE CHEST 1V PORTABLE CHEST 1V Clinical Indication: weakness Comparison: Two-view chest October 04, 2017. Findings: Apical lordotic positioning. There is left chest dual-chamber pacer. There is cardiomegaly. There is a probable calcified nodule in the left midlung. Lungs are otherwise clear. There is no pneumothorax. Question small left pleural effusion. No acute bone abnormality. IMPRESSION: 1. Stable cardiomegaly. 2. Small left pleural effusion.] Course & Med Decision Making Course & Med Decision Making Pertinent Labs and Imaging studies reviewed. (See chart for details) [6:20 AM:]Patient remains stable. I discussed test results, the need for close follow-up, and return precautions. Patient's labs are similar to baseline. Dragon Disclaimer Dragon Disclaimer This electronic medical record was generated, in whole or in part, using a voice recognition dictation system. Departure Departure Impression: Primary Impression: Weakness Disposition: 01 HOME, SELF-CARE Condition: STABLE Referrals: JITENDRA RYDER MD (PCP) Patient Instructions: ROSS Lemus MD Feb 24, 2018 04:32
[2018-02-24 04:37] VITALS: BP 159/118
[2018-02-24] MEDS ORDERED: IV NORMAL SALINE 500ML BAG 500 ML IV ONE (05:00)
[2018-02-24 05:07] LABS: BASO # 0.1 x10^3/uL (0.0-0.2); BASO % 1 % (0-3); EOS # 0.3 x10^3/uL (0.0-0.7); EOS % 3 % (0-3); HEMATOCRIT 30.7 % (36.0-47.0); HEMOGLOBIN 10.1 g/dL (12.0-15.5); LYMPH # 1.4 x10^3/uL (1.0-4.8); LYMPH % 19 % (24-48); MEAN CORPUSCULAR HEMOGLOBIN 28 pg (25-35); MEAN CORPUSCULAR HGB CONC 33 g/dL (31-37); MEAN CORPUSCULAR VOLUME 84 fL (79-100); MONO % 13 % (0-9); NEUT # 4.8 x10^3uL (1.8-7.7); NEUT % 63 % (31-73); PLATELET COUNT 190 x10^3/uL (140-400); RED BLOOD COUNT 3.65 x10^6/uL (3.50-5.40); RED CELL DISTRIBUTION WIDTH 17.2 % (11.5-14.5); WHITE BLOOD COUNT 7.6 x10^3/uL (4.0-11.0)
[2018-02-24 05:12] LABS: BILIRUBIN,URINE NEGATIVE (NEG); CLARITY,URINE CLEAR; COLOR,URINE YELLOW; NITRITE,URINE NEGATIVE (NEG); PROTEIN,URINE 30 mg/dL (NEG-TRACE); UROBILINOGEN,URINE 0.2 mg/dL (0.2 mg/dL)
[2018-02-24 05:23] LABS: BACTERIA,URINE FEW /HPF (0-FEW); RBC,URINE 0 /HPF (0-2); SQUAMOUS EPITHELIAL CELL,UR MOD /LPF
[2018-02-24 05:31] LABS: CALCIUM 8.8 mg/dL (8.5-10.1); CREATININE 1.9 mg/dL (0.6-1.0); GFR 25.3
[2018-02-24 05:38] LABS: DIG < 0.2 ng/mL (0.9-2.0)
[2018-02-24 05:40] LABS: FREE T4 1.13 ng/dL (0.76-1.46); THYROID STIM HORMONE (TSH) 5.877 uIU/mL (0.358-3.74)
--- NOTE | 2018-02-24 05:40 | RAD ---
PORTABLE CHEST 1V Clinical Indication: weakness Comparison: Two-view chest October 04, 2017. Findings: Apical lordotic positioning. There is left chest dual-chamber pacer. There is cardiomegaly. There is a probable calcified nodule in the left midlung. Lungs are otherwise clear. There is no pneumothorax. Question small left pleural effusion. No acute bone abnormality. IMPRESSION: 1. Stable cardiomegaly. 2. Small left pleural effusion. Electronically signed by: Aleksander Cote MD (02/24/2018 5:37 AM) [id number]
[2018-02-24 05:41] LABS: ALBUMIN 3.7 g/dL (3.4-5.0); MAGNESIUM 2.4 mg/dL (1.8-2.4); PHOSPHORUS 4.7 mg/dL (2.6-4.7); TOTAL BILIRUBIN 0.8 mg/dL (0.2-1.0); TOTAL PROTEIN 7.5 g/dL (6.4-8.2)
[2018-02-24 05:44] LABS: CREATINE KINASE 52 U/L (26-192)
--- NOTE | 2018-02-24 06:42 | EKG ---
[facility] [address] [place] [address] Test Date: 2018-02-24 Test Time: 05:07:16 Pat Name: RAHEEL PANIC Department: Room: Gender: F Baker Bench: NADINE : 1935 Requested By: ROSS GRAY Order Number: [id number] Reading MD: Bj Perez MD Measurements Intervals [place] Rate: 82 P: [place]: QRS: 9 QRSD: 84 T: 18 QT: 434 QTc: 510 Interpretive Statements ATRIAL FIBRILLATION PVC Electronically Signed On 02-28-2018 11:52:02 CDT by Bj Perez MD
--- NOTE | 2018-02-24 06:45 | EKG ---
[facility] [address] [place] [address] Test Date: 2018-02-24 Test Time: 05:36:53 Pat Name: RAHEEL PANIC Department: Room: Gender: F Seamer: NADINE : 1935 Requested By: ROSS GRAY Order Number: [id number] Reading MD: Bj Perez MD Measurements Intervals [place] Rate: 122 P: 90 IN: 104 QRS: -60 QRSD: 182 T: 104 QT: 360 QTc: 514 Interpretive Statements AFIB DEMAND V-PACING Electronically Signed On 02-28-2018 11:52:13 CDT by Bj Perez MD
== END 2018-02-24 07:17 | disposition home or self-care (01) ==
LOC: ER 03:47
DX: R53.1 Weakness (principal); I48.91 Unspecified atrial fibrillation; I11.0 Hypertensive heart disease with heart failure; I50.9 Heart failure, unspecified; E11.9 Type 2 diabetes mellitus without complications; Z98.890 Other specified postprocedural states
CPT/HCPCS: 36415; 71045; 80053; 80162; 81001; 82553; 83605; 83735; 83880; 84100; 84439; 84443; 84484; 85025; 93005; 96374; 99285; J2060; J7040

== ENCOUNTER → 2019-02-28 | Outpatient (CLI) | payer BC ==
[2018-05-10 11:19] VITALS: BP 134/75
[~2019-02-28] MED LIST changes: +BUME1TAB3 PO; +CEPH-264 PO; +DIGO250T PO; -DILT120C80 PO; +DILT120C85 PO; +DOCU-109 PO; -HYDR-2762 PO; +HYDR-2765 PO; +HYDR-2867 PO; +HYDR-3164 PO; +IBUP-1027 PO; +METO25TA2 PO; -PANT40TA5 PO; +PANT40TA77 PO
--- NOTE | 2019-02-28 13:01 | RAD ---
CT HEAD INDICATION: Alzheimer's dementia COMPARISON: 04/02/2018 Exposure: One or more of the following individualized dose reduction techniques were utilized for this examination: 1. Automated exposure control 2. Adjustment of the mA and/or kV according to patient size 3. Use of iterative reconstruction technique TECHNIQUE: 5 mm contiguous axial images were obtained from the skull base to the vertex in both bone and soft tissue algorithm. FINDINGS: Mild bilateral periventricular white matter hypodensities likely chronic small vessel ischemic changes No evidence of acute intracranial hemorrhage. No extra-axial fluid collections. No mass effect or midline shift. Ventricular size is appropriate. Basal cisterns are patent. No fractures identified.Patel-white differentiation is preserved.Globes and orbits are within normal limits. Paranasal sinuses and mastoid air cells are clear. IMPRESSION: No acute intracranial findings. Electronically signed by: Taj Pandya MD (02/28/2019 12:58 PM) [facility]
== END | disposition home or self-care (01) ==
LOC: CT 13:58
PROVIDERS: ATTEND Internal Medicine
DX: I12.9 Hypertensive chronic kidney disease with stage 1 through stage 4 chronic kidney disease, or unspecified chronic kidney disease (principal); N18.3 Chronic kidney disease, stage 3 (moderate); N17.9 Acute kidney failure, unspecified; E11.9 Type 2 diabetes mellitus without complications; K92.2 Gastrointestinal hemorrhage, unspecified; I65.29 Occlusion and stenosis of unspecified carotid artery; G30.1 Alzheimer's disease with late onset; R90.82 White matter disease, unspecified; E78.5 Hyperlipidemia, unspecified; K21.9 Gastro-esophageal reflux disease without esophagitis; D64.9 Anemia, unspecified
CPT/HCPCS: 70450

== ENCOUNTER → 2020-03-11 | Outpatient (CLI) | payer BC ==
[2018-05-10 11:19] VITALS: BP 134/75
[~2020-03-11] MED LIST changes: -DIGO125T PO; +DIGO125T3 PO; -DIGO250T PO; +DIGO250T3 PO; -DILT120C85 PO; +DILT120C99 PO; +SIMV10TA15 PO; -SIMV10TA3 PO
--- NOTE | 2020-03-11 16:44 | KCIC ---
EXAM: CHEST PA LATERAL INDICATION: Reason: SOA, LEFT SIDED CHEST PAIN / Spl. Instructions: / History: . TECHNIQUE: PA and lateral views COMPARISON: 05/09/2018 chest x-ray FINDINGS: Left chest dual-chamber pacemaker is still present, leads in the right atrium and right ventricle. The heart size is mildly enlarged. The great vessels appear unremarkable. There is no hilar or mediastinal mass. Lungs are low in volume but show asymmetrically increased reticular densities in the left lung. There is no pleural effusion or pneumothorax. There are no significant osseous abnormalities. IMPRESSION: Cardiomegaly and asymmetrically increased reticular densities in the left lung that could reflect early pneumonitis. Correlate clinically and consider follow-up. Electronically signed by: Salima Rogers MD (03/11/2020 4:41 PM) [id number]
== END | disposition home or self-care (01) ==
LOC: KCIC 15:31
PROVIDERS: ATTEND Internal Medicine
DX: R06.02 Shortness of breath (principal); R07.9 Chest pain, unspecified; I51.7 Cardiomegaly; Z95.0 Presence of cardiac pacemaker
CPT/HCPCS: 71046

== ENCOUNTER 2021-01-31 21:33 | Inpatient (IN) | payer BC ==
[~2021-01-31] VITALS: Ht 157.5 cm; Wt 112.5 kg
[~2021-01-31 21:33] MED LIST changes: +ACET325T9 PO; -AMIO200T4 PO; +AMIO200T6 PO; +ASPI-886 PO; +CEPH500T PO; -DOXY100C2 PO; +DOXY100C3 PO; +LEVO25TA4 PO; +POTA10TA6 PO; +PRED20TA PO; +SIMV20TA18 PO; +TORS10TA3 PO
--- NOTE | 2021-01-31 22:42 | PHYS DOC ---
Past Medical History Past Medical History: A-Fib, CHF, Diabetes-Type II, High Cholesterol, Hyp ertension Past Surgical History: Pacemaker Additional Past Surgical Histo: HERNIA Smoking Status: Never Smoker Alcohol Use: None Drug Use: None General Adult EDM: Chief Complaint: SHORTNESS OF BREATH Problems: (1) Shortness of breath HPI: HPI: 85-year-old female who speaks therapy and at baseline presents to the emergency department with reported shortness of breath and altered mental status. The patient does not present with family members or any other people who can translate for the patient. 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 Reportedly, she has several family members who have tested positive for Covid, she has been vaccinated apparently 2 weeks ago with a [employer] vaccine. She does have a history of Eliquis use and reports that she had a shoulder surgery a few weeks ago. No further history could be obtained from this patient. Review of Systems: Review of Systems: ROS is otherwise impossible secondary to communication issues with patient Heart Score: C/O Chest Pain: N/A Family History: Family History: Noncontributory Current Medications: My Orders - SHAN JOSEPH DO Procedure Category Date Status Time Vital Signs Monitoring ER 01/31/21 Transmitted 22:07 Blood Pressure ER 01/31/21 Transmitted Monitoring 22:07 Cardiac Monitoring ER 01/31/21 Transmitted 22:07 Continuous Pulse Ox ER 01/31/21 Transmitted 22:07 Cbc W Autodiff LAB 01/31/21 Logged 22:07 Ua, Cult If Indicated LAB 01/31/21 Logged 22:07 Comprehensive LAB 01/31/21 Logged Metabolic Panel 22:07 Portable Chest 1v RAD 01/31/21 Logged 22:07 Ct Head Wo Contrast CT 01/31/21 Logged 22:07 12 Lead Ekg EKG 01/31/21 Logged 22:07 Protime With Inr LAB 01/31/21 Logged 22:07 Partial LAB 01/31/21 Logged Thromboplastin Time 22:07 Magnesium LAB 01/31/21 Logged 22:07 Ammonia LAB 01/31/21 Logged 22:07 Nt-Pro Bnp LAB 01/31/21 Logged 22:07 Troponini LAB 01/31/21 Logged 22:[address] 01/31/21 Logged 22:07 Allergies: Allergies: Allergies Coded Allergies Type Severity Reaction Last Updated Verified No Known Drug Allergies 05/04/18 No Physical Exam: PE: Constitutional: No acute distress, non-toxic appearance. HENT: Atraumatic, bilateral external ears normal, nose normal. Eyes: PERRLA, EOMI, conjunctiva normal, no discharge. Neck: Normal range of motion, supple, no stridor. Cardiovascular: Regular. 2+ radial pulses Lungs & Thorax: No respiratory distress, symmetrical expansion. Bilateral breath sounds clear to auscultation Abdomen: Soft, no tenderness Skin: Ecchymosis present to the left shoulder and left arm area, appears Extremities: No tenderness, no cyanosis, ROM intact, no edema. Neurologic: normal motor function, normal sensory function, no focal deficits noted. Moves all extremities. Current Patient Data: Labs: Laboratory Tests Test 01/31/21 23:40 White Blood Count 8.0 x10^3/uL (4.0-11.0) Red Blood Count 3.33 x10^6/uL (3.50-5.40) Hemoglobin 8.7 g/dL (12.0-15.5) Hematocrit 27.9 % (36.0-47.0) Mean Corpuscular Volume 84 fL (79-100) Mean Corpuscular Hemoglobin 26 pg (25-35) Mean Corpuscular Hemoglobin Concent 31 g/dL (31-37) Red Cell Distribution Width 18.4 % (11.5-14.5) Platelet Count 169 x10^3/uL (140-400) Neutrophils (%) (Auto) 73 % (31-73) Lymphocytes (%) (Auto) 9 % (24-48) Monocytes (%) (Auto) 15 % (0-9) Eosinophils (%) (Auto) 1 % (0-3) Basophils (%) (Auto) 1 % (0-3) Neutrophils # (Auto) 5.9 x10^3/uL (1.8-7.7) Lymphocytes # (Auto) 0.7 x10^3/uL (1.0-4.8) Monocytes # (Auto) 1.2 x10^3/uL (0.0-1.1) Eosinophils # (Auto) 0.1 x10^3/uL (0.0-0.7) Basophils # (Auto) 0.1 x10^3/uL (0.0-0.2) Prothrombin Time 18.5 SEC (11.7-14.0) Prothromb Time International Ratio 1.6 (0.8-1.1) Activated Partial Thromboplast Time 52 SEC (24-38) Sodium Level 140 mmol/L (136-145) Potassium Level 5.1 mmol/L (3.5-5.1) Chloride Level 105 mmol/L (98-107) Carbon Dioxide Level 21 mmol/L (21-32) Anion Gap 14 (6-14) Blood Urea Nitrogen 43 mg/dL (7-20) Creatinine 2.4 mg/dL (0.6-1.0) Estimated GFR (Cockcroft-Gault) 19.2 BUN/Creatinine Ratio 18 (6-20) Glucose Level 104 mg/dL (70-99) Calcium Level 8.4 mg/dL (8.5-10.1) Magnesium Level 2.2 mg/dL (1.8-2.4) Total Bilirubin 1.0 mg/dL (0.2-1.0) Aspartate Amino Transf (AST/SGOT) 24 U/L (15-37) Alanine Aminotransferase (ALT/SGPT) 24 U/L (14-59) Alkaline Phosphatase 100 U/L (46-116) Ammonia 17 mcmol/L (11-34) Troponin I Quantitative < 0.017 ng/mL (0.000-0.055) WQ-Sah-S-Type Natriuretic Peptide 8413 pg/mL (0-449) Total Protein 6.4 g/dL (6.4-8.2) Albumin 3.3 g/dL (3.4-5.0) Albumin/Globulin Ratio 1.1 (1.0-1.7) Vital Signs: Vital Signs Date Time Temp Pulse Resp B/P (MAP) Pulse Ox O2 Delivery O2 Flow Rate FiO2 01/31/21 21:43 99.1 101 24 154/91 95 High Flow Nasal Cannula 2.0 99.1 EKG: EKG: Atrial fibrillation rate of 111, atrial fibrillation, normal axis, normal MO, QRS, and QTc intervals. Impression: Normal EKG. interpreted by Shan kent D.O. Radiology/Procedures: Radiology/Procedures: PROCEDURE: CT HEAD WO CONTRAST STUDY: CT head without contrast INDICATION: Altered mental status. COMPARISON: 02/28/2019 TECHNIQUE: Axial CT imaging through the head without the use of intravenous contrast. Sagittal and coronal reformats were obtained. One or more of the following individualized dose reduction techniques were utilized for this examination: 1. Automated exposure control 2. Adjustment of the mA and/or kV according to patient size 3. Use of iterative reconstruction technique. FINDINGS: Limited study on account of motion mainly through the posterior fossa and lower aspect of the supratentorial compartment. No acute intracranial hemorrhage is identified. No CT evidence for an acute cortical infarction. Similar degree of generalized ventriculomegaly from the prior in the setting of parenchymal volume loss. No localized mass effect or midline shift. Intracranial calcific atherosclerosis and white matter findings most frequently on account of chronic microvascular ischemic change. No acute abnormality of the partially assessed calvarium. Small amount of fluid within the right aspect of the sphenoid sinus. Probable mild mucosal thickening of the left maxillary sinus. IMPRESSION: 1. Motion degraded study. 2. Taking motion into consideration, no acute intracranial abnormality by CT. 3. Small amount of fluid within the right aspect of the sphenoid sinus. Correlate for symptoms or a history of sinusitis. 4. Chronic/senescent observations as above. Electronically signed by: KEYANA CHEN MD (02/01/2021 1:22 AM) Course & Med Decision Making: Course & Med Decision Making Patient presented with altered mental status, no further history was able to be obtained secondary to patient's communication barriers. Work-up today is largely unremarkable, will admit the patient to the hospital for further care. Patient's primary doctor, Dr. Ryder will admit Departure Departure Impression: Primary Impression: Altered mental status Additional Impressions: Chronic kidney disease Shortness of breath Disposition: ADMITTED INPATIENT Admitting Physician: Reece Ryder Condition: STABLE Referrals: REECE RYDER MD (PCP) SHAN JOSEPH DO Jan 31, 2021 22:42
[2021-01-31 23:48] LABS: BASO # 0.1 x10^3/uL (0.0-0.2); BASO % 1 % (0-3); EOS # 0.1 x10^3/uL (0.0-0.7); EOS % 1 % (0-3); HEMATOCRIT 27.9 % (36.0-47.0); HEMOGLOBIN 8.7 g/dL (12.0-15.5); LYMPH # 0.7 x10^3/uL (1.0-4.8); LYMPH % 9 % (24-48); MEAN CORPUSCULAR HEMOGLOBIN 26 pg (25-35); MEAN CORPUSCULAR HGB CONC 31 g/dL (31-37); MEAN CORPUSCULAR VOLUME 84 fL (79-100); MONO # 1.2 x10^3/uL (0.0-1.1); MONO % 15 % (0-9); NEUT # 5.9 x10^3/uL (1.8-7.7); NEUT % 73 % (31-73); PLATELET COUNT 169 x10^3/uL (140-400); RED BLOOD COUNT 3.33 x10^6/uL (3.50-5.40); RED CELL DISTRIBUTION WIDTH 18.4 % (11.5-14.5)
[2021-02-01] VITALS (16 sets, daily range): BP systolic 86–159; BP diastolic 44–86
[2021-02-01] LABS: CALCIUM 8.4 mg/dL (8.5-10.1); CREATININE 2.4 mg/dL (0.6-1.0); GFR 19.2; POTASSIUM 5.1 mmol/L (3.5-5.1)
[2021-02-01 00:06] LABS: ALBUMIN 3.3 g/dL (3.4-5.0); ALBUMIN/GLOBULIN RATIO 1.1 (1.0-1.7); MAGNESIUM 2.2 mg/dL (1.8-2.4); TOTAL PROTEIN 6.4 g/dL (6.4-8.2)
[2021-02-01 00:07] LABS: PROTHROMBIN TIME PATIENT 18.5 SEC (11.7-14.0)
--- NOTE | 2021-02-01 01:24 | RAD ---
STUDY: CT head without contrast INDICATION: Altered mental status. COMPARISON: 02/28/2019 TECHNIQUE: Axial CT imaging through the head without the use of intravenous contrast. Sagittal and co black reformats were obtained. One or more of the following individualized dose reduction techniques were utilized for this examinat ion: 1. Automated exposure control 2. Adjustment of the mA and/or kV according to patient size 3. Use of iterative reconstruction technique. FINDINGS: Limited study on account of motion mainly through the posterior fossa and lower aspect of the suprate ntorial compartment. No acute intracranial hemorrhage is identified. No CT evidence for an acute cortical infarction. Tigist lar degree of generalized ventriculomegaly from the prior in the setting of parenchymal volume loss. No localized mass effect or midline shift. Intracranial calcific atherosclerosis and white matter findings most frequently on account of chronic microvascular ischemic change. No acute abnormality of the partially assessed calvarium. Small amount of fluid within the right aspe ct of the sphenoid sinus. Probable mild mucosal thickening of the left maxillary sinus. IMPRESSION: 1. Motion degraded study. 2. Taking motion into consideration, no acute intracranial abnormality by CT. 3. Small amount of fluid within the right aspect of the sphenoid sinus. Correlate for symptoms or a history of sinusitis. 4. Chronic/senescent observations as above. Electronically signed by: KEYANA CHEN MD (02/01/2021 1:22 AM) [facility] [place]
--- NOTE | 2021-02-01 01:30 | NUR ---
Pt admitted to room 538 from ED. Pt noted to be tachypneic 30-40's, SpO2 in 70's on 2L NC, coarse lung sounds and audible wheezing, with an elevated irregular heart rate between 120-150. Oxygen increased to 6L NC with little improvement (SpO2 87-90%). Dr. Medae notified. Orders to tx patient to CVC, start a Cardizem gtt, and consults placed to Dr. Foster and Dr. Perez. Nursing scouring pads supervisor notified. RT paged to assess patient. Pt placed on 15L NRB mask. Pt still tachypneic (30-40) but SpO2 shraddha to upper 90's. Nursing scouring pads supervisor initiated Cardizem gtt due to no bed availability in CVC. ER physician placed order to give 40mg of IV Lasix x1. Dr. Foster notified of pt status and orders received to start patient on Bipap. Pt transferred to room 502 for continuous monitoring and needing Bipap in a pressurized room. Pt is Swiss speaking only and refuses to use the UpOut phone. No family present due to pending COVID status. Admission completed by the paperwork that was brought in by family. Voicemail was left to Eddie, pt daughter. Awaiting a call back. Will continue to monitor.
[2021-02-01 01:46] LABS: BILIRUBIN,URINE NEGATIVE (NEG); CLARITY,URINE CLEAR; COLOR,URINE YELLOW; NITRITE,URINE NEGATIVE (NEG); PROTEIN,URINE 30 mg/dL (NEG-TRACE); UROBILINOGEN,URINE 0.2 mg/dL (0.2 mg/dL)
[2021-02-01 01:58] LABS: RBC,URINE 0 /HPF (0-2)
[2021-02-01 01:59] LABS: AMORPHOUS SEDIMENT,UR PRESENT /HPF; BACTERIA,URINE FEW /HPF (0-FEW); HYALINE CASTS, URINE FEW /HPF
[2021-02-01] MEDS ORDERED: APIX2.5T PO ×2 (02:39→03:07)
[2021-02-01] MEDS: IV NORMAL SALINE 1000ML BAG 1,000 ML IV SCH ×2 (03:00→23:00)
[2021-02-01] MEDS ORDERED: DEXTROSE 50% 25 GM / 50ML DISP.SYRIN. IV PRN (03:00)
[2021-02-01] MEDS ORDERED: DEXAMETHASONE SOD PHOS 4 MG/ML VIAL IV ONE (03:15)
[2021-02-01] MEDS ORDERED: ACETAMINOPHEN 325 MG TABLET. PO PRN (03:15)
[2021-02-01] MEDS ORDERED: AMIODARONE 450 MG in IV DEXTROSE 5% 250 ML IV PRN (03:15)
[2021-02-01] MEDS ORDERED: AMIODARONE 150 MG in IV DEXTROSE 5% 100ML 100 ML IV ONE (03:15)
[2021-02-01] MEDS ORDERED: FUROSEMIDE 40 MG/4 ML VIAL. IVP ONE (03:30)
--- NOTE | 2021-02-01 03:47 | EKG ---
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
--- NOTE | 2021-02-01 03:56 | RAD ---
Study: XR CHEST 1V Indication: Altered mental status. Comparison: 12/28/2020 Findings: Left chest wall dual-lead pacer. Unchanged enlargement of the cardiomediastinal silhouette. Similar findings from the prior with predominantly linear densities extending to the pleura on the ri ght mainly at the mid to upper lung. Background increased interstitial markings. No pneumothorax. No layering effusion. Impression: Cardiomediastinal silhouette enlargement and lung findings often seen with interstitial edema. No lay ering effusion. Electronically signed by: KEYANA CHEN MD (02/01/2021 3:54 AM) [facility]
--- NOTE | 2021-02-01 05:00 | NUR ---
NS @ 50 non administered due to signs of fluid overload. Will address order with .
[2021-02-01] MEDS: LEVOTHYROXINE 25 MCG TABLET. PO SCH (05:16)
--- NOTE | 2021-02-01 07:00 | NUR ---
Pt transferred to room 650. Report called to ESMER Enriquez. Pt transported via bed with RT Netta. All belongings with patient at the time of transfer.
[2021-02-01] MEDS: INSULIN LISPRO 300 UNITS/3 ML VIAL. SQ SCH ×3 (08:00→17:00)
[2021-02-01] MEDS: POTASSIUM CHLORIDE 10 MEQ TABLET.ER. PO SCH (08:00)
[2021-02-01] MEDS ORDERED: TORSEMIDE 20 MG TABLET. PO SCH (09:00)
[2021-02-01] MEDS: AMIODARONE HCL 200 MG TABLET. PO SCH (09:00)
--- NOTE | 2021-02-01 09:25 | RAD ---
UE VENOUS DUPLEX LEFT Left upper extremity venous duplex was performed using B-mode, color-flow, and spectral Doppler. Indication: Left upper extremity pain Findings: Examination is limited given the patient and verbal factors. Within these constraints, no definite DV T in the visualized portions of the left internal jugular, subclavian, axillary, brachial, basilic, a nd cephalic veins. Radial and ulnar veins are not well visualized. Impression: On this markedly limited examination, no definite left upper extremity DVT. Electronically signed by: Smooth Oshea MD (02/01/2021 9:23 AM) JESSI
[2021-02-01] MEDS: ALPRAZolam 0.25 MG TABLET PO SCH ×2 (09:26→21:02)
[2021-02-01] MEDS: APIXABAN 2.5 MG TABLET. PO SCH ×2 (09:27→21:02)
[2021-02-01] MEDS: ASPIRIN ENTERIC COATED 81 MG TABLET.DR. PO SCH (09:27)
[2021-02-01] MEDS: DEXAMETHASONE 4 MG TABLET PO SCH (09:27)
[2021-02-01] MEDS: METOPROLOL TART IMMED RELEASE 50 MG TABLET. PO SCH ×2 (09:28→21:02)
--- NOTE | 2021-02-01 09:58 | CONS ---
DATE OF CONSULTATION: 02/01/2021 PULMONARY CONSULTATION ATTENDING PHYSICIAN: Dr. Meade. REASON FOR CONSULTATION: Respiratory failure. HISTORY OF PRESENT ILLNESS: The patient is an 85-year-old morbidly obese patient with a BMI of 40. The patient has history of biventricular failure. She had a recent cardiac cath where she was noted to have increased pulmonary capillary wedge pressure of 27 and secondary pulmonary hypertension secondary to diastolic heart failure. She was brought into the hospital with dyspnea, hypoxia. Many of her family members have been COVID positive. She did receive Vignesh and Vignesh vaccine 2 weeks ago. The patient has been currently on BiPAP at 100% FIO2. She is a DNR according to the nursing. She declined to have the COVID testing. I have been asked to see her for further evaluation. Due to language barrier, I am unable to obtain much history. Chest x-ray revealed bilateral interstitial infiltrate and marked cardiomegaly. PAST MEDICAL HISTORY: Significant for history of morbid obesity, history of prior cardiac cath with evidence of left ventricular failure with pulmonary capillary pressure of 27 and secondary pulmonary hypertension secondary to diastolic heart failure, EF was 55%; AFib; CHF; type 2 diabetes; dyslipidemia and hypertension. SURGERIES: Including pacemaker, hernia repair and cardiac cath. SOCIAL HISTORY: Nonsmoker. ALLERGIES: None. MEDICATIONS: Reviewed as listed in the MRAD including amiodarone and diltiazem and Eliquis. SYSTEM REVIEW: Unable to obtain from the patient due to language barrier. PHYSICAL EXAMINATION: VITAL SIGNS: She is currently on 100% FiO2 via BiPAP. Pulse ox is 100%. Afebrile. Blood pressure 143 systolic. GENERAL: Visual exam done due to COVID suspicion. No obvious respiratory distress. She is morbidly obese. EXTREMITIES: With trace pitting edema. No rash. LABORATORY DATA: Reviewed. White cell count 8.0, hemoglobin 8.7 and platelets are 169. BUN 43, creatinine 2.4. Albumin 3.3. Troponin normal. IMPRESSION: 1. Acute hypoxic respiratory failure. This could be secondary to multifactorial etiologies. She had a fever of 99.6. Multiple family members are COVID positive. Even though she received Vignesh and Vignesh vaccine 2 weeks ago, this could be viral pneumonia related to COVID. Other differential diagnosis would be interstitial edema. 2. The patient with a known biventricular failure. Previous cardiac catheterization with evidence of left heart failure with pulmonary capillary wedge pressure of 27 and secondary pulmonary hypertension. May benefit from mild diuresis. 3. No significant tobacco history. 4. Underlying morbid obesity. 5. Chronic kidney disease. 6. Markedly increased proBNP. RECOMMENDATIONS: 1. Discussed with RN. At this point, we will continue with 100% FIO2. 2. The patient declines to be COVID tested. She has a low-grade fever. We will continue with present dexamethasone and add empiric antibiotic. 3. Continue Eliquis. 4. Continue amiodarone. Possibility of amiodarone pneumonitis would also be a consideration in the differential diagnosis. 5. A trial of diuresis with close monitoring of renal function. 6. The patient is a DNR. 7. Discussed with RN. Chart reviewed, imaging studies reviewed. Total critical care time 32 minutes including decision making. SIMBA/RONNI DR: SIMBA/ronni TID: [id number]
[2021-02-01] MEDS ORDERED: FUROSEMIDE 20 MG/2 ML VIAL. IVP ONE (10:00)
--- NOTE | 2021-02-01 11:36 | PDOC ---
Provider Note Date of Service: DATE: 02/01/21 TIME: 11:35 Provider Note Pt seen.H&P dictated.#[id number] Justifications for Admission Other Justification JITENDRA RYDER MD Feb 01, 2021 11:36
[2021-02-01] MEDS ORDERED: cefTRIAXone IV Push 2 GM VIAL. IVP ONE (12:00)
--- NOTE | 2021-02-01 12:00 | PDOC2 ---
CONSULT Date of Consult Date of Consult DATE: 02/01/21 TIME: 11:59 Reason for Consult Reason for Consult: Atrial fibrillation Referring Physician Referring Physician: Dr. Meade Identification/Chief Complaint Chief Complaint Shortness of breath Source Source: Chart review, Patient History of Present Illness Reason for Visit: 85-year-old female with history of atrial fibrillation, sick sinus syndrome s/p permanent pacemaker implantation, chronic diastolic heart failure presented with progressive shortness of breath and was found to have acute hypoxic respiratory failure. Of note, many of her family members have recently tested positive for Covid but she did receive Vignesh & Vignesh vaccine 2 weeks ago. She is currently needing BiPAP. She denied any chest pain, palpitations or syncope. Past Medical History Cardiovascular: AFIB, CHF, HTN, Valve insufficiency Pulmonary: No pertinent hx CENTRAL NERVOUS SYSTEM: Other GI: Diverticulosis Heme/Onc: Anemia NOS Hepatobiliary: No pertinent hx Psych: No pertinent hx Rheumatologic: No pertinent hx Infectious disease: No pertinent hx Renal/: Chronic renal insuff Endocrine: Diabetes, Hypothyroidism Past Surgical History Past Surgical History: Cholecystectomy, Hernia Repair Family History Family History: Other Social History ALCOHOL: none Drugs: None Lives: with Family Current Problem List Problem List Problems Medical Problems: (1) Altered mental status Status: Acute (2) Chronic kidney disease Status: Acute (3) Shortness of breath Status: Acute Current Medications Current Medications Current Medications Enoxaparin Sodium (Lovenox Per Pharmacy Prophylaxis Dosing) 1 each PRN DAILY PRN MC SEE COMMENTS; Start 02/01/21 at 00:15; Stop 02/01/21 at 00:18; Status DC Sodium Chloride 1,000 ml @ 50 mls/hr Q20H IV ; Start 02/01/21 at 03:00 Dexamethasone Sodium Phosphate (Decadron) 10 mg 1X ONCE IV Last administered on 02/01/21at 03:19; Start 02/01/21 at 03:15; Stop 02/01/21 at 03:16; Status DC Dexamethasone (Decadron) 6 mg DAILYWBKFT PO Last administered on 02/01/21at 09:27; Start 02/01/21 at 08:00 Insulin Human Lispro (HumaLOG) 0-7 UNITS TIDWMEALS SQ ; Start 02/01/21 at 08:00 Dextrose (Dextrose 50%-Water Syringe) 12.5 gm PRN Q15MIN PRN IV SEE COMMENTS; Start 02/01/21 at 03:00 Amiodarone HCl 150 mg/Dextrose 103 ml @ 600 mls/hr 1X ONCE IV ; Start 02/01/21 at 03:15; Stop 02/01/21 at 03:25; Status Cancel Amiodarone HCl 450 mg/Dextrose 259 ml @ 0 mls/hr CONT PRN IV SEE I/O RECORD; Start 02/01/21 at 03:15; Stop 02/02/21 at 03:14; Status Cancel Acetaminophen (Tylenol) 650 mg PRN Q6HRS PRN PO PAIN MILD/FEVER; Start 02/01/21 at 03:15 Alprazolam (Xanax) 0.25 mg BID PO Last administered on 02/01/21at 09:26; Start 02/01/21 at 09:00 Amiodarone HCl (Cordarone) 200 mg DAILY PO ; Start 02/01/21 at 09:00 Apixaban (Eliquis) 2.5 mg BID PO Last administered on 02/01/21at 09:27; Start 02/01/21 at 09:00 Aspirin (Ecotrin) 81 mg DAILYWBKFT PO Last administered on 02/01/21at 09:27; Start 02/01/21 at 08:00 Levothyroxine Sodium (Synthroid) 25 mcg DAILY06 PO ; Start 02/01/21 at 06:00 Simvastatin (Zocor) 10 mg HS PO ; Start 02/01/21 at 21:00 Metoprolol Tartrate (Lopressor) 100 mg BID PO Last administered on 02/01/21at 09:28; Start 02/01/21 at 09:00 Potassium Chloride (Klor-Con) 20 meq DAILYWBKFT PO ; Start 02/01/21 at 08:00 Torsemide (Demadex) 10 mg DAILY PO Last administered on 02/01/21at 09:28; Start 02/01/21 at 09:00; Stop 02/01/21 at 11:37; Status DC Diltiazem HCl 125 mg/Sodium Chloride 125 ml @ 5 mls/hr CONT PRN IV SEE I/O RECORD Last administered on 02/01/21at 03:27; Start 02/01/21 at 03:15 Diltiazem HCl 125 mg/Sodium Chloride 125 ml @ 5 mls/hr CONT PRN IV SEE I/O REC ORD; Start 02/01/21 at 03:15; Status UNV Furosemide (Lasix) 40 mg 1X ONCE IVP Last administered on 02/01/21at 03:36; Start 02/01/21 at 03:30; Stop 02/01/21 at 03:31; Status DC Furosemide (Lasix) 20 mg 1X ONCE IVP ; Start 02/01/21 at 10:00; Stop 02/01/21 at 10:01; Status DC Torsemide (Demadex) 20 mg DAILY PO ; Start 02/02/21 at 09:00 Ceftriaxone Sodium (Rocephin) 2 gm 1X ONCE IVP ; Start 02/01/21 at 12:00; Stop 02/01/21 at 12:01 Ceftriaxone Sodium (Rocephin) 1 gm Q24H IVP ; Start 02/02/21 at 13:00 Active Scripts Active Klor-Con 10 (Potassium Chloride) 10 Meq Tablet.er 2 Tab PO DAILY 30 Days Aspirin Ec (Aspirin) 81 Mg Tablet.dr 81 Mg PO DAILYWBKFT 30 Days Reported Eliquis (Apixaban) 2.5 Mg Tablet 2.5 Mg PO BID Torsemide 10 Mg Tablet 1 Tab PO DAILY Simvastatin 10 Mg Tablet 10 Mg PO HS Tylenol (Acetaminophen) 325 Mg Tablet 650 Mg PO PRN Q6HRS PRN Levothyroxine Sodium 25 Mcg Tablet 1 Tab PO DAILY Alprazolam 0.25 Mg Tablet 1 Tab PO BID Metoprolol Tartrate 100 Mg Tablet 1 Tab PO BID Amiodarone Hcl 200 Mg Tablet 1 Tab PO DAILY Allergies Allergies: Coded Allergies: No Known Drug Allergies (Unverified , 05/04/18) ROS Review of System Full review of systems cannot be obtained since patient is on BiPAP and has language barrier Physical Exam General: Alert, mild distress HEENT: Other (On BiPAP) Lungs: Other (Bilateral basal crepitations) Heart: Other (Heart rate is irregular) Abdomen: Soft, No tenderness Extremities: Other (Trace pitting edema) Neuro: Normal speech Psych/Mental Status: Mental status NL Vitals VITALS Vital Signs Date Time Temp Pulse Resp B/P (MAP) Pulse Ox O2 Delivery O2 Flow Rate FiO2 02/01/21 10:47 99.3 107 26 144/79 (100) 96 BiPAP/CPAP 99.3 02/01/21 04:55 15.0 Labs Labs Laboratory Tests Test 01/31/21 23:40 02/01/21 01:35 02/01/21 07:34 02/01/21 11:24 White Blood Count 8.0 x10^3/uL (4.0-11.0) Red Blood Count 3.33 x10^6/uL (3.50-5.40) Hemoglobin 8.7 g/dL (12.0-15.5) Hematocrit 27.9 % (36.0-47.0) Mean Corpuscular Volume 84 fL (79-100) Mean Corpuscular Hemoglobin 26 pg (25-35) Mean Corpuscular Hemoglobin Concent 31 g/dL (31-37) Red Cell Distribution Width 18.4 % (11.5-14.5) Platelet Count 169 x10^3/uL (140-400) Neutrophils (%) (Auto) 73 % (31-73) Lymphocytes (%) (Auto) 9 % (24-48) Monocytes (%) (Auto) 15 % (0-9) Eosinophils (%) (Auto) 1 % (0-3) Basophils (%) (Auto) 1 % (0-3) Neutrophils # (Auto) 5.9 x10^3/uL (1.8-7.7) Lymphocytes # (Auto) 0.7 x10^3/uL (1.0-4.8) Monocytes # (Auto) 1.2 x10^3/uL (0.0-1.1) Eosinophils # (Auto) 0.1 x10^3/uL (0.0-0.7) Basophils # (Auto) 0.1 x10^3/uL (0.0-0.2) Prothrombin Time 18.5 SEC (11.7-14.0) Prothromb Time International Ratio 1.6 (0.8-1.1) Activated Partial Thromboplast Time 52 SEC (24-38) Sodium Level 140 mmol/L (136-145) Potassium Level 5.1 mmol/L (3.5-5.1) Chloride Level 105 mmol/L (98-107) Carbon Dioxide Level 21 mmol/L (21-32) Anion Gap 14 (6-14) Blood Urea Nitrogen 43 mg/dL (7-20) Creatinine 2.4 mg/dL (0.6-1.0) Estimated GFR (Cockcroft-Gault) 19.2 BUN/Creatinine Ratio 18 (6-20) Glucose Level 104 mg/dL (70-99) Calcium Level 8.4 mg/dL (8.5-10.1) Magnesium Level 2.2 mg/dL (1.8-2.4) Total Bilirubin 1.0 mg/dL (0.2-1.0) Aspartate Amino Transf (AST/SGOT) 24 U/L (15-37) Alanine Aminotransferase (ALT/SGPT) 24 U/L (14-59) Alkaline Phosphatase 100 U/L (46-116) Ammonia 17 mcmol/L (11-34) Troponin I Quantitative < 0.017 ng/mL (0.000-0.055) OD-Uwa-I-Type Natriuretic Peptide 8413 pg/mL (0-449) Total Protein 6.4 g/dL (6.4-8.2) Albumin 3.3 g/dL (3.4-5.0) Albumin/Globulin Ratio 1.1 (1.0-1.7) Urine Collection Type U cath Urine Color Yellow Urine Clarity Clear Urine pH 5.0 (<5.0-8.0) Urine Specific Commerce 1.020 (1.000-1.030) Urine Protein 30 mg/dL (NEG-TRACE) Urine Glucose (UA) Negative mg/dL (NEG) Urine Ketones (Stick) Negative mg/dL (NEG) Urine Blood Moderate (NEG) Urine Nitrite Negative (NEG) Urine Bilirubin Negative (NEG) Urine Urobilinogen Dipstick 0.2 mg/dL (0.2 mg/dL) Urine Leukocyte Esterase Moderate (NEG) Urine RBC 0 /HPF (0-2) Urine WBC 5-10 /HPF (0-4) Urine Squamous Epithelial Cells Mod /LPF Urine Amorphous Sediment Present /HPF Urine Bacteria Few /HPF (0-FEW) Urine Hyaline Casts Few /HPF Urine Mucus Mod /LPF Glucose (Fingerstick) 149 mg/dL (70-99) 188 mg/dL (70-99) Laboratory Tests Test 01/31/21 23:40 02/01/21 01:35 02/01/21 07:34 02/01/21 11:24 White Blood Count 8.0 x10^3/uL (4.0-11.0) Red Blood Count 3.33 x10^6/uL (3.50-5.40) Hemoglobin 8.7 g/dL (12.0-15.5) Hematocrit 27.9 % (36.0-47.0) Mean Corpuscular Volume 84 fL (79-100) Mean Corpuscular Hemoglobin 26 pg (25-35) Mean Corpuscular Hemoglobin Concent 31 g/dL (31-37) Red Cell Distribution Width 18.4 % (11.5-14.5) Platelet Count 169 x10^3/uL (140-400) Neutrophils (%) (Auto) 73 % (31-73) Lymphocytes (%) (Auto) 9 % (24-48) Monocytes (%) (Auto) 15 % (0-9) Eosinophils (%) (Auto) 1 % (0-3) Basophils (%) (Auto) 1 % (0-3) Neutrophils # (Auto) 5.9 x10^3/uL (1.8-7.7) Lymphocytes # (Auto) 0.7 x10^3/uL (1.0-4.8) Monocytes # (Auto) 1.2 x10^3/uL (0.0-1.1) Eosinophils # (Auto) 0.1 x10^3/uL (0.0-0.7) Basophils # (Auto) 0.1 x10^3/uL (0.0-0.2) Prothrombin Time 18.5 SEC (11.7-14.0) Prothromb Time International Ratio 1.6 (0.8-1.1) Activated Partial Thromboplast Time 52 SEC (24-38) Sodium Level 140 mmol/L (136-145) Potassium Level 5.1 mmol/L (3.5-5.1) Chloride Level 105 mmol/L (98-107) Carbon Dioxide Level 21 mmol/L (21-32) Anion Gap 14 (6-14) Blood Urea Nitrogen 43 mg/dL (7-20) Creatinine 2.4 mg/dL (0.6-1.0) Estimated GFR (Cockcroft-Gault) 19.2 BUN/Creatinine Ratio 18 (6-20) Glucose Level 104 mg/dL (70-99) Calcium Level 8.4 mg/dL (8.5-10.1) Magnesium Level 2.2 mg/dL (1.8-2.4) Total Bilirubin 1.0 mg/dL (0.2-1.0) Aspartate Amino Transf (AST/SGOT) 24 U/L (15-37) Alanine Aminotransferase (ALT/SGPT) 24 U/L (14-59) Alkaline Phosphatase 100 U/L (46-116) Ammonia 17 mcmol/L (11-34) Troponin I Quantitative < 0.017 ng/mL (0.000-0.055) TZ-Glf-E-Type Natriuretic Peptide 8413 pg/mL (0-449) Total Protein 6.4 g/dL (6.4-8.2) Albumin 3.3 g/dL (3.4-5.0) Albumin/Globulin Ratio 1.1 (1.0-1.7) Urine Collection Type U cath Urine Color Yellow Urine Clarity Clear Urine pH 5.0 (<5.0-8.0) Urine Specific Commerce 1.020 (1.000-1.030) Urine Protein 30 mg/dL (NEG-TRACE) Urine Glucose (UA) Negative mg/dL (NEG) Urine Ketones (Stick) Negative mg/dL (NEG) Urine Blood Moderate (NEG) Urine Nitrite Negative (NEG) Urine Bilirubin Negative (NEG) Urine Urobilinogen Dipstick 0.2 mg/dL (0.2 mg/dL) Urine Leukocyte Esterase Moderate (NEG) Urine RBC 0 /HPF (0-2) Urine WBC 5-10 /HPF (0-4) Urine Squamous Epithelial Cells Mod /LPF Urine Amorphous Sediment Present /HPF Urine Bacteria Few /HPF (0-FEW) Urine Hyaline Casts Few /HPF Urine Mucus Mod /LPF Glucose (Fingerstick) 149 mg/dL (70-99) 188 mg/dL (70-99) Assessment/Plan Assessment/Plan 1. Acute hypoxic respiratory failure, multifactorial. She has had multiple family members tested positive for Covid recently. She did receive Vignesh & Vignesh vaccine 2 weeks ago. Patient declines to be tested for Covid. Pulmonary team planning on adding empiric antibiotics and steroids. Chest x-ray and BNP level consistent with acute on chronic diastolic heart failure. Recent 2D echo in August 2020 showed LVEF 55 to 60%. Recent cardiac catheterization in December 2020 showed moderate pulmonary hypertension probably secondary to increased left-sided filling pressures. Continue diuresis with Lasix. 2. Persistent atrial fibrillation with RVR. Titrate Cardizem and continue home medication metoprolol for better rate control. Continue Eliquis for stroke prophylaxis. Continue amiodarone and consider outpatient cardioversion for recurrent atrial fibrillation. 3. Sick sinus syndrome s/p permanent pacemaker implantation with recent device check showing normal function and adequate battery life. 4. Hypertension: Controlled 5. Hyperlipidemia: Continue statin therapy 6. Hypothyroidism: Continue levothyroxine Thank you for your consultation CHRISTINE ADAME MD Feb 01, 2021 12:00
--- NOTE | 2021-02-01 13:20 | HP ---
ADMIT DATE: 02/01/2021 MEDICAL HISTORY AND PHYSICAL REASON FOR ADMISSION TO THE HOSPITAL: Respiratory failure, possible COVID infection, possible pneumonia. HISTORY OF PRESENT ILLNESS: The patient is an 85-year-old female who has a history of chronic congestive heart failure, ejection fraction was low 3 years back 20% with a pacemaker defibrillator, with medications, now it went up to 50%. The patient had a cardiac cath 3 months ago and shows mostly pulmonary hypertension with right heart failure. The patient has a history of COPD, on oxygen and chronic AFib, on Eliquis. She was at [facility] and was discharged 1-2 weeks ago. She was at home and other family members at home were positive for COVID. She was having short of breath, weakness, fever, was brought to the hospital and the patient was hypoxic requiring 8-10 liters of oxygen and also placed on BiPAP. Pulmonary was consulted. The patient was also in AFib with RVR with heart rate 130, started on Cardizem drip and the patient also has a chronic kidney disease stage 4, creatinine 2.2, creatinine clearance 27. The patient was placed on BiPAP last night and the patient is a DNR. The patient's daughter works as a alumni secretary in the hospital. PAST MEDICAL HISTORY: Obesity, heart failure, COPD, pulmonary hypertension, Pickwickian syndrome, chronic kidney disease, AFib, type 2 diabetes, hyperlipidemia, hypertension. PAST SURGICAL HISTORY: Hernia repair, pacemaker, cardiac cath. SOCIAL HISTORY: Denies smoking. Lives with her , has been gradually getting worse. ALLERGIES: No known allergies. MEDICATIONS: At home, the patient is on Xanax 0.5 twice a day, amiodarone 200 mg daily, Eliquis 2.5 mg twice a day, aspirin 81 mg daily, levothyroxine 25 mcg daily, metoprolol 100 mg twice a day, potassium 10 mEq daily, simvastatin 10 mg daily, torsemide 10 mg daily. She was on oral medications for diabetes and is off the medications. REVIEW OF SYMPTOMS: Complains of shortness of breath, fever; does not feel good; language problem. PHYSICAL EXAMINATION: VITAL SIGNS: At the time of admission shows temperature 99, pulse 101 went up to 130, respirations 23, blood pressure 155/99, 95% and then she went on 100% on BiPAP on 15 liters. Now, she is on BiPAP. GENERAL: Chronically sick looking, has central obesity, clinical Pickwickian syndrome. HEENT: Head atraumatic. Pupils equal. Oral cavity, no congestion, no teeth. NECK: Supple. CHEST: Symmetrical. CARDIOVASCULAR: S1, S2. Bilateral crackles. ABDOMEN: Soft. Bowel sounds present. No masses palpable. Central obesity. EXTERNAL GENITALIA: Epps. RECTAL: Deferred. EXTREMITIES: Edema both extremities and also the patient has bruising in the left arm. NEUROLOGIC: Moving extremities. Able to talk. No focal deficits noted. LABORATORY DATA: Shows white count of 8, hemoglobin 8.7, platelets 169. INR 1.6. Sodium 140, potassium 5.1, chloride 105, bicarbonate 21, BUN 40, creatinine 2.4 and GFR is 19. Magnesium 2.2. LFTs negative. BNP 8000. Troponin was negative. Ammonia 17. Chest x-ray shows bilateral infiltrates in the lung. EKG, AFib with RVR. FINAL IMPRESSION: 1. Acute respiratory failure. 2. Acute on chronic systolic heart failure. 3. COVID infection, high probability, all the family members have COVID. 4. Rule out underlying lung infection. 5. Coronary artery disease. 6. Atrial fibrillation with rapid ventricular response. 7. Chronic kidney disease, stage 4, creatinine clearance of 19. 8. Pickwickian syndrome with right heart failure. 9. General debility. PLAN: At this time, the patient is a DNR. The patient is on BiPAP. Culture was done, started on Rocephin. The patient was given a small dose of Lasix, dexamethasone presumptive COVID, the patient is refusing COVID test. Continue Eliquis for anticoagulation and Cardizem drip to control heart rate. Pulmonary and Cardiology consulted. Prognosis poor. NICOLE/CHANTALE/LUANN DR: NICOLE/ronni TID: [id number] MTDD
[2021-02-01] MEDS: SIMVASTATIN 10 MG TABLET PO SCH (21:02)
[2021-02-02] VITALS (16 sets, daily range): BP systolic 100–132; BP diastolic 50–86
[2021-02-02] MEDS: LEVOTHYROXINE 25 MCG TABLET. PO SCH (06:37)
[2021-02-02] MEDS: INSULIN LISPRO 300 UNITS/3 ML VIAL. SQ SCH ×3 (08:00→17:00)
[2021-02-02] MEDS: ALPRAZolam 0.25 MG TABLET PO SCH ×2 (08:51→20:41)
[2021-02-02] MEDS: TORSEMIDE 20 MG TABLET. PO SCH (08:51)
[2021-02-02] MEDS: APIXABAN 2.5 MG TABLET. PO SCH ×2 (08:52→20:41)
[2021-02-02] MEDS: AMIODARONE HCL 200 MG TABLET. PO SCH (08:52)
[2021-02-02] MEDS: METOPROLOL TART IMMED RELEASE 50 MG TABLET. PO SCH ×2 (08:52→20:41)
[2021-02-02] MEDS: ASPIRIN ENTERIC COATED 81 MG TABLET.DR. PO SCH (08:53)
[2021-02-02] MEDS: POTASSIUM CHLORIDE 10 MEQ TABLET.ER. PO SCH (08:53)
[2021-02-02] MEDS: DEXAMETHASONE 4 MG TABLET PO SCH (08:53)
--- NOTE | 2021-02-02 09:02 | PDOC ---
PROGRESS NOTES Date of Service: DATE: 02/02/21 TIME: 09:01 Subjective Subjective looks better today Objective Objective Vital Signs Date Time Temp Pulse Resp B/P (MAP) Pulse Ox O2 Delivery O2 Flow Rate FiO2 02/02/21 08:52 82 101/77 02/02/21 08:30 Nasal Cannula 15.0 02/02/21 06:15 95 02/02/21 02:38 98.5 18 98.5 Intake and Output 02/02/21 07:00 Intake Total 250 ml Output Total 1900 ml Balance -1650 ml Intake Oral 250 ml Output Urine Total 1900 ml # Voids 2 Physical Exam Abdomen: Soft, No tenderness Heart: Other (Heart rate is irregular) Extremities: Other (Trace pitting edema) General: Alert, mild distress HEENT: Other (On BiPAP) Lungs: Other (Bilateral basal crepitations) MUSCULOSKELETAL: No joint tenderness, No deformity Neuro: Normal speech Psych/Mental Status: Mental status NL Diagnosis Problem List Problems Medical Problems: (1) Altered mental status Status: Acute (2) Chronic kidney disease Status: Acute (3) Shortness of breath Status: Acute Assessment Assessment Problems Medical Problems: (1) Altered mental status Status: Acute (2) Chronic kidney disease Status: Acute (3) Shortness of breath Status: Acute FINAL IMPRESSION: 1. Acute respiratory failure. 2. Acute on chronic systolic heart failure. 3. COVID infection Positive, high probability, all the family members have COVID. 4. Rule out underlying lung infection. 5. Coronary artery disease. 6. Atrial fibrillation with rapid ventricular response. 7. Chronic kidney disease, stage 4, creatinine clearance of 23. 8. Pickwickian syndrome with right heart failure. 9. General debility. PLAN: Covid positive , will start on Remdesivir. on nasal cannula oxygen. labs pending dexamethasone on eliquis. At this time, the patient is a DNR. The patient is on BiPAP. Culture was done, started on Rocephin. The patient was given a small dose of Lasix, dexamethasone presumptive COVID, the patient is refusing COVID test. Continue Eliquis for anticoagulation and Cardizem drip to control heart rate. Pulmonary and Cardiology consulted. Prognosis poor. Plan Plan of Care Problems Medical Problems: (1) Altered mental status Status: Acute (2) Chronic kidney disease Status: Acute (3) Shortness of breath Status: Acute Comment Review of Relevant I have reviewed the following items shana (where applicable) has been applied. Labs Laboratory Tests Test 02/01/21 11:24 02/01/21 11:40 02/01/21 16:03 02/01/21 20:59 Glucose (Fingerstick) 188 mg/dL (70-99) 168 mg/dL (70-99) 165 mg/dL (70-99) SARS-CoV-2 Antigen (Rapid) Positive (NEGATIVE) Test 02/02/21 07:49 Glucose (Fingerstick) 150 mg/dL (70-99) Microbiology 02/01/21 Urine Culture - Final, Complete Medications Current Medications Ceftriaxone Sodium (Rocephin) 1 gm Q24H IVP ; Start 02/02/21 at 13:00 Ceftriaxone Sodium (Rocephin) 2 gm 1X ONCE IVP Last administered on 02/01/21at 13:59; Start 02/01/21 at 12:00; Stop 02/01/21 at 12:01; Status DC Furosemide (Lasix) 20 mg 1X ONCE IVP Last administered on 02/01/21at 13:58; Start 02/01/21 at 10:00; Stop 02/01/21 at 10:01; Status DC Simvastatin (Zocor) 10 mg HS PO Last administered on 02/01/21at 21:02; Start 02/01/21 at 21:00 Torsemide (Demadex) 20 mg DAILY PO Last administered on 02/02/21at 08:51; Start 02/02/21 at 09:00 Vitals/I & O Vital Sign - Last 24 Hours 02/01/21 02/01/21 02/01/21 02/01/21 09:28 09:43 10:47 14:14 Temp 99.3 99.3 Pulse 132 107 Resp 26 B/P (MAP) 143/86 144/79 (100) Pulse Ox 98 96 97 O2 Delivery BiPAP/CPAP BiPAP/CPAP BiPAP/CPAP 02/01/21 02/01/21 02/01/21 02/01/21 14:45 16:04 18:50 20:00 Temp 97.9 98.3 97.9 98.3 Pulse 79 87 Resp 24 26 B/P (MAP) 119/59 (79) 114/54 (74) Pulse Ox 100 100 98 O2 Delivery BiPAP/CPAP BiPAP/CPAP Nasal Cannula Nasal Cannula O2 Flow Rate 15.0 15.0 02/01/21 02/01/21 02/01/21 02/01/21 21:00 21:02 21:30 22:00 Pulse 86 87 84 B/P (MAP) 116/72 (87) 114/54 104/59 (74) Pulse Ox 94 O2 Delivery BiPAP/CPAP 02/01/21 02/01/21 02/02/21 02/02/21 23:00 23:00 00:01 00:04 Temp 98.5 98.5 Pulse 81 78 82 Resp 16 B/P (MAP) 96/52 (67) 115/52 (73) Pulse Ox 90 95 O2 Delivery BiPAP/CPAP BiPAP/CPAP 02/02/21 02/02/21 02/02/21 02/02/21 01:00 02:00 02:30 02:38 Temp 98.5 98.5 Pulse 82 76 84 Resp 18 B/P (MAP) 100/50 (67) 102/53 (69) Pulse Ox 95 94 O2 Delivery BiPAP/CPAP BiPAP/CPAP 02/02/21 02/02/21 02/02/21 02/02/21 03:00 04:00 05:00 05:06 Pulse 86 84 84 B/P (MAP) 102/65 (77) 105/67 (80) 108/57 (74) Pulse Ox 94 O2 Delivery BiPAP/CPAP 02/02/21 02/02/21 02/02/21 02/02/21 06:00 06:15 08:30 08:52 Pulse 82 82 B/P (MAP) 101/77 (85) 101/77 Pulse Ox 95 O2 Delivery BiPAP/CPAP Nasal Cannula O2 Flow Rate 15.0 02/02/21 08:52 Pulse 82 B/P (MAP) 101/77 Intake and Output 02/01/21 02/01/21 02/02/21 15:00 23:00 07:00 Intake Total 50 ml 150 ml 50 ml Output Total 800 ml 600 ml 500 ml Balance -750 ml -450 ml -450 ml Justifications for Admission Other Justification JITENDRA RYDER MD Feb 02, 2021 09:02
--- NOTE | 2021-02-02 09:34 | PDOC ---
PULMONARY PROGRESS NOTES DATE: 02/02/21 TIME: 09:17 Subjective Patient eating breakfast. Off BiPAP, on nasal cannula saturations 88% to 90%. Vitals Vital Signs Date Time Temp Pulse Resp B/P (MAP) Pulse Ox O2 Delivery O2 Flow Rate FiO2 02/02/21 08:52 82 101/77 02/02/21 08:30 Nasal Cannula 15.0 02/02/21 06:15 95 02/02/21 02:38 98.5 18 98.5 Comments Visual exam done due to COVID-19 pandemic no paradoxical breathing No skin rash no leg edema General: Alert, No acute distress Labs Laboratory Tests Test 01/31/21 23:40 02/01/21 01:35 02/01/21 07:34 02/01/21 11:24 White Blood Count 8.0 x10^3/uL (4.0-11.0) Red Blood Count 3.33 x10^6/uL (3.50-5.40) Hemoglobin 8.7 g/dL (12.0-15.5) Hematocrit 27.9 % (36.0-47.0) Mean Corpuscular Volume 84 fL (79-100) Mean Corpuscular Hemoglobin 26 pg (25-35) Mean Corpuscular Hemoglobin Concent 31 g/dL (31-37) Red Cell Distribution Width 18.4 % (11.5-14.5) Platelet Count 169 x10^3/uL (140-400) Neutrophils (%) (Auto) 73 % (31-73) Lymphocytes (%) (Auto) 9 % (24-48) Monocytes (%) (Auto) 15 % (0-9) Eosinophils (%) (Auto) 1 % (0-3) Basophils (%) (Auto) 1 % (0-3) Neutrophils # (Auto) 5.9 x10^3/uL (1.8-7.7) Lymphocytes # (Auto) 0.7 x10^3/uL (1.0-4.8) Monocytes # (Auto) 1.2 x10^3/uL (0.0-1.1) Eosinophils # (Auto) 0.1 x10^3/uL (0.0-0.7) Basophils # (Auto) 0.1 x10^3/uL (0.0-0.2) Prothrombin Time 18.5 SEC (11.7-14.0) Prothromb Time International Ratio 1.6 (0.8-1.1) Activated Partial Thromboplast Time 52 SEC (24-38) Sodium Level 140 mmol/L (136-145) Potassium Level 5.1 mmol/L (3.5-5.1) Chloride Level 105 mmol/L (98-107) Carbon Dioxide Level 21 mmol/L (21-32) Anion Gap 14 (6-14) Blood Urea Nitrogen 43 mg/dL (7-20) Creatinine 2.4 mg/dL (0.6-1.0) Estimated GFR (Cockcroft-Gault) 19.2 BUN/Creatinine Ratio 18 (6-20) Glucose Level 104 mg/dL (70-99) Calcium Level 8.4 mg/dL (8.5-10.1) Magnesium Level 2.2 mg/dL (1.8-2.4) Total Bilirubin 1.0 mg/dL (0.2-1.0) Aspartate Amino Transf (AST/SGOT) 24 U/L (15-37) Alanine Aminotransferase (ALT/SGPT) 24 U/L (14-59) Alkaline Phosphatase 100 U/L (46-116) Ammonia 17 mcmol/L (11-34) Troponin I Quantitative < 0.017 ng/mL (0.000-0.055) QY-Eed-X-Type Natriuretic Peptide 8413 pg/mL (0-449) Total Protein 6.4 g/dL (6.4-8.2) Albumin 3.3 g/dL (3.4-5.0) Albumin/Globulin Ratio 1.1 (1.0-1.7) Urine Collection Type U cath Urine Color Yellow Urine Clarity Clear Urine pH 5.0 (<5.0-8.0) Urine Specific [place] 1.020 (1.000-1.030) Urine Protein 30 mg/dL (NEG-TRACE) Urine Glucose (UA) Negative mg/dL (NEG) Urine Ketones (Stick) Negative mg/dL (NEG) Urine Blood Moderate (NEG) Urine Nitrite Negative (NEG) Urine Bilirubin Negative (NEG) Urine Urobilinogen Dipstick 0.2 mg/dL (0.2 mg/dL) Urine Leukocyte Esterase Moderate (NEG) Urine RBC 0 /HPF (0-2) Urine WBC 5-10 /HPF (0-4) Urine Squamous Epithelial Cells Mod /LPF Urine Amorphous Sediment Present /HPF Urine Bacteria Few /HPF (0-FEW) Urine Hyaline Casts Few /HPF Urine Mucus Mod /LPF Glucose (Fingerstick) 149 mg/dL (70-99) 188 mg/dL (70-99) Test 02/01/21 11:40 02/01/21 16:03 02/01/21 20:59 02/02/21 07:49 SARS-CoV-2 Antigen (Rapid) Positive (NEGATIVE) Glucose (Fingerstick) 168 mg/dL (70-99) 165 mg/dL (70-99) 150 mg/dL (70-99) Laboratory Tests Test 02/01/21 11:24 02/01/21 11:40 02/01/21 16:03 02/01/21 20:59 Glucose (Fingerstick) 188 mg/dL (70-99) 168 mg/dL (70-99) 165 mg/dL (70-99) SARS-CoV-2 Antigen (Rapid) Positive (NEGATIVE) Test 02/02/21 07:49 Glucose (Fingerstick) 150 mg/dL (70-99) Medications Active Scripts Medications Dose Route/Sig Max Daily Dose Days Date Category Eliquis (Apixaban) 2.5 Mg Tablet 2.5 Mg PO BID 02/01/21 Reported Klor-Con 10 (Potassium Chloride) 10 Meq Tablet.er 2 Tab PO DAILY 30 01/05/21 Rx Aspirin Ec (Aspirin) 81 Mg Tablet.dr 81 Mg PO DAILYWBKFT 30 01/05/21 Rx Torsemide 10 Mg Tablet 1 Tab PO DAILY 12/28/20 Reported Simvastatin 10 Mg Tablet 10 Mg PO HS 12/28/20 Reported Tylenol (Acetaminophen) 325 Mg Tablet 650 Mg PO PRN Q6HRS PRN 08/28/20 Reported Levothyroxine Sodium 25 Mcg Tablet 1 Tab PO DAILY 08/27/20 Reported Alprazolam 0.25 Mg Tablet 1 Tab PO BID 08/27/20 Reported Metoprolol Tartrate 100 Mg Tablet 1 Tab PO BID 08/27/20 Reported Amiodarone Hcl 200 Mg Tablet 1 Tab PO DAILY 02/21/18 Reported Impression . 1. Acute hypoxic respiratory failure. This is secondary to multifactorial etiologies. She has COVID-19 viral pneumonia/acute lung injury , she did received Vignesh and Vignesh vaccine 2 weeks ago, Other differential diagnosis would be interstitial edema. 2. The patient with a known biventricular failure. Previous cardiac catheterization with evidence of left heart failure with pulmonary capillary wedge pressure of 27 and secondary pulmonary hypertension. May benefit from mild diuresis. 3. No significant tobacco history. 4. Underlying morbid obesity. 5. Chronic kidney disease. 6. Markedly increased proBNP. Plan . 1. Discussed with RN. At this point, we will continue with as needed BiPAP alternating with nasal cannula during the day. 2. Patient agreed to have Covid testing now she is Covid positive. will continue with present dexamethasone and remdesivir along with empiric antibiotic. 3. Continue Eliquis. 4. Continue amiodarone. Possibility of amiodarone pneumonitis would also be a consideration in the differential diagnosis. 5. As needed diuresis with close monitoring of renal function. 6. The patient is a DNR. 7. Discussed with RN. RACHELLE GAN MD Feb 02, 2021 09:34
[2021-02-02 09:54] LABS: BASO % 0 % (0-3); EOS % 0 % (0-3); HEMOGLOBIN 9.2 g/dL (12.0-15.5); LYMPH # 0.7 x10^3/uL (1.0-4.8); LYMPH % 7 % (24-48); MEAN CORPUSCULAR HEMOGLOBIN 27 pg (25-35); MEAN CORPUSCULAR HGB CONC 33 g/dL (31-37); MEAN CORPUSCULAR VOLUME 82 fL (79-100); MONO # 0.5 x10^3/uL (0.0-1.1); MONO % 5 % (0-9); NEUT % 87 % (31-73); PLATELET COUNT 185 x10^3/uL (140-400); RED CELL DISTRIBUTION WIDTH 18.6 % (11.5-14.5); WHITE BLOOD COUNT 9.1 x10^3/uL (4.0-11.0)
[2021-02-02 10:08] LABS: CALCIUM 8.7 mg/dL (8.5-10.1); CREATININE 2.5 mg/dL (0.6-1.0); GFR 18.3; POTASSIUM 5.1 mmol/L (3.5-5.1)
[2021-02-02] MEDS ORDERED: REMDESIVIR LOAD in IV NORMAL SALINE 250ML TV IV ONE (11:00)
--- NOTE | 2021-02-02 12:23 | PDOC ---
ROVERTO ROSALES CURTAIN WORKER 02/02/21 1223: CARDIO Progress Notes Date and Time Date of Service 02/02/21 Time of Evaluation 1223 Subjective Subjective: No Chest Pain, No Palpitations, Other (not more SOA) Vitals Vitals Vital Signs Date Time Temp Pulse Resp B/P (MAP) Pulse Ox O2 Delivery O2 Flow Rate FiO2 02/02/21 11:32 97.9 89 16 125/73 (90) 93 BiPAP/CPAP 97.9 02/02/21 08:30 15.0 Weight Weight [ ] Input and Output Intake and Output Intake and Output 02/02/21 07:00 Intake Total 250 ml Output Total 1900 ml Balance -1650 ml Intake Oral 250 ml Output Urine Total 1900 ml # Voids 2 Laboratory Labs Laboratory Tests Test 02/01/21 16:03 02/01/21 20:59 02/02/21 07:49 02/02/21 09:30 Glucose (Fingerstick) 168 mg/dL (70-99) 165 mg/dL (70-99) 150 mg/dL (70-99) White Blood Count 9.1 x10^3/uL (4.0-11.0) Red Blood Count 3.40 x10^6/uL (3.50-5.40) Hemoglobin 9.2 g/dL (12.0-15.5) Hematocrit 28.0 % (36.0-47.0) Mean Corpuscular Volume 82 fL (79-100) Mean Corpuscular Hemoglobin 27 pg (25-35) Mean Corpuscular Hemoglobin Concent 33 g/dL (31-37) Red Cell Distribution Width 18.6 % (11.5-14.5) Platelet Count 185 x10^3/uL (140-400) Neutrophils (%) (Auto) 87 % (31-73) Lymphocytes (%) (Auto) 7 % (24-48) Monocytes (%) (Auto) 5 % (0-9) Eosinophils (%) (Auto) 0 % (0-3) Basophils (%) (Auto) 0 % (0-3) Neutrophils # (Auto) 8.0 x10^3/uL (1.8-7.7) Lymphocytes # (Auto) 0.7 x10^3/uL (1.0-4.8) Monocytes # (Auto) 0.5 x10^3/uL (0.0-1.1) Eosinophils # (Auto) 0.0 x10^3/uL (0.0-0.7) Basophils # (Auto) 0.0 x10^3/uL (0.0-0.2) Sodium Level 139 mmol/L (136-145) Potassium Level 5.1 mmol/L (3.5-5.1) Chloride Level 104 mmol/L (98-107) Carbon Dioxide Level 22 mmol/L (21-32) Anion Gap 13 (6-14) Blood Urea Nitrogen 56 mg/dL (7-20) Creatinine 2.5 mg/dL (0.6-1.0) Estimated GFR (Cockcroft-Gault) 18.3 Glucose Level 200 mg/dL (70-99) Calcium Level 8.7 mg/dL (8.5-10.1) Test 02/02/21 12:00 Glucose (Fingerstick) 150 mg/dL (70-99) Microbiology Micro Microbiology 02/01/21 Urine Culture - Final, Complete Physical Exam HEENT: Neck Supple W Full Motion Chest: Symmetric LUNGS: Other (NC) Heart: irregularly irregular (AFIB ) Abdomen: Other (obese ) Neurology: alert, follow commands Assessment Assessment 1. Acute hypoxic respiratory failure, multifactorial with COVID PNA and a/c CHF. S/p J & J vaccine 2 weeks ago. 2. Acute on chronic diastolic CHF; Echo 09/14 with LVEF 55 to 60%. RHC 01/14 showed moderate pulmonary hypertension probably secondary to increased left- sided filling pressures. 3. PAFIB with RVR; Rate controlled with resumption of metoprolol and Cardizem g tt. 4. SSS s/p PPM (Biotronik); Device check 10/15 with normal function and adequate battery life. AFIB burden 9% 5. Hypertension; controlled 6. Hyperlipidemia; statin 7. Diabetes, II 8. CKD 9. Hypothyroidism; Continue levothyroxine Recommendations Oral diuretics with close monitoring of renal function. Additional diuresis PRN Continue metoprolol for rate control Titrate off Cardizem gtt Eliquis for stroke prophylaxis. Continue amiodarone unless ILD suspected. Consider outpatient CV for recurrent atrial fibrillation. Ongoing lung optimization Justicifation of Admission Dx: Justifications for Admission: Justification of Admission Dx: Yes CHRISTINE ADAME MD 02/02/21 1720: CARDIO Progress Notes Assessment Assessment Patient seen and examined. Agree with CORK CUTTER's assessment and plan. Acute respiratory failure multifactorial as noted above. Acute on chronic diastolic heart failure improved with diuresis. Atrial fibrillation with RVR, rate better controlled. Titrate Cardizem off as tolerated and continue metoprolol for rate control. Continue Eliquis for stroke prophylaxis. Plan outpatient cardioversion. SSS s/p PPM, clinically stable. Recent device check showed normal function. ROVERTO ROSALES APRN Feb 02, 2021 12:23 CHRISTINE ADAME MD Feb 02, 2021 17:20
[2021-02-02] MEDS: cefTRIAXone IV Push 1 GM VIAL. IVP SCH (14:02)
--- NOTE | 2021-02-02 15:04 | NUR ---
SS following for discharge planning. SS reviewed pt chart and discussed with pt RN. Pt is from home and is currently on the BIPAP at 50%. COVID19 positive. Pt on IV Remdesivir and IV Rocephin. Pt was recently discharged from [facility]. SS will continue to follow for discharge planning.
[2021-02-02] MEDS: IV NORMAL SALINE 1000ML BAG 1,000 ML IV SCH (19:00)
[2021-02-02] MEDS: SIMVASTATIN 10 MG TABLET PO SCH (20:41)
[2021-02-03 03:30] VITALS: BP 130/86
[2021-02-03] MEDS: LEVOTHYROXINE 25 MCG TABLET. PO SCH ×2 (06:05→22:08)
[2021-02-03 07:00] VITALS: BP 127/87
[2021-02-03 07:09] LABS: BASO % 0 % (0-3); EOS % 0 % (0-3); HEMATOCRIT 27.9 % (36.0-47.0); LYMPH # 0.5 x10^3/uL (1.0-4.8); LYMPH % 8 % (24-48); MEAN CORPUSCULAR HEMOGLOBIN 26 pg (25-35); MEAN CORPUSCULAR HGB CONC 32 g/dL (31-37); MEAN CORPUSCULAR VOLUME 82 fL (79-100); MONO # 0.5 x10^3/uL (0.0-1.1); MONO % 7 % (0-9); NEUT # 6.1 x10^3/uL (1.8-7.7); NEUT % 85 % (31-73); PLATELET COUNT 185 x10^3/uL (140-400); RED BLOOD COUNT 3.42 x10^6/uL (3.50-5.40); RED CELL DISTRIBUTION WIDTH 17.8 % (11.5-14.5); WHITE BLOOD COUNT 7.1 x10^3/uL (4.0-11.0)
[2021-02-03 07:33] LABS: CALCIUM 8.5 mg/dL (8.5-10.1); CREATININE 2.5 mg/dL (0.6-1.0); GFR 18.3; POTASSIUM 4.9 mmol/L (3.5-5.1)
[2021-02-03] MEDS: INSULIN LISPRO 300 UNITS/3 ML VIAL. SQ SCH ×3 (08:00→17:00)
--- NOTE | 2021-02-03 09:08 | PDOC ---
PROGRESS NOTES Date of Service: DATE: 02/03/21 TIME: 09:05 Subjective Subjective on BIPAP Objective Objective Vital Signs Date Time Temp Pulse Resp B/P (MAP) Pulse Ox O2 Delivery O2 Flow Rate FiO2 02/03/21 08:21 91 BiPAP/CPAP 02/03/21 07:00 96.9 90 28 127/87 (100) 96.9 02/02/21 08:30 15.0 Intake and Output 02/03/21 07:00 Intake Total 50 ml Output Total 1250 ml Balance -1200 ml Intake Oral 50 ml Output Urine Total 1250 ml Physical Exam Abdomen: Soft, No tenderness Heart: Normal S1, Normal S2, Other (Heart rate is irregular) Extremities: Other (Trace pitting edema) General: Alert, mild distress HEENT: Other (On BiPAP) Lungs: Other (Bilateral basal crepitations) MUSCULOSKELETAL: No joint tenderness, No deformity Neuro: Normal speech Psych/Mental Status: Mental status NL Diagnosis Problem List Problems Medical Problems: (1) Altered mental status Status: Acute (2) Chronic kidney disease Status: Acute (3) Shortness of breath Status: Acute Assessment Assessment Problems Medical Problems: (1) Altered mental status Status: Acute (2) Chronic kidney disease Status: Acute (3) Shortness of breath Status: Acute FINAL IMPRESSION: 1. Acute respiratory failure. 2. Acute on chronic systolic heart failure. 3. COVID infection Positive, high probability, all the family members have COVID. 4. Rule out underlying lung infection. 5. Coronary artery disease. 6. Atrial fibrillation with rapid ventricular response. 7. Chronic kidney disease, stage 4, creatinine clearance of 23. 8. Pickwickian syndrome with right heart failure. 9. General debility. PLAN: On BIPAP Covid positive , will start on Remdesivir. cr 2.5 stable, CKD stage 4 kidney disease dexamethasone for covid on eliquis.for A fib At this time, the patient is a DNR. The patient is on BiPAP. Culture was done, started on Rocephin. The patient was given a small dose of Lasix, dexamethasone presumptive COVID, the patient is refusing COVID test. Continue Eliquis for anticoagulation and Cardizem drip to control heart rate. Pulmonary and Cardiology consulted. Prognosis poor. Plan Plan of Care Problems Medical Problems: (1) Altered mental status Status: Acute (2) Chronic kidney disease Status: Acute (3) Shortness of breath Status: Acute Comment Review of Relevant I have reviewed the following items shana (where applicable) has been applied. Labs Laboratory Tests Test 02/02/21 09:30 02/02/21 12:00 02/02/21 18:25 02/02/21 21:06 White Blood Count 9.1 x10^3/uL (4.0-11.0) Red Blood Count 3.40 x10^6/uL (3.50-5.40) Hemoglobin 9.2 g/dL (12.0-15.5) Hematocrit 28.0 % (36.0-47.0) Mean Corpuscular Volume 82 fL (79-100) Mean Corpuscular Hemoglobin 27 pg (25-35) Mean Corpuscular Hemoglobin Concent 33 g/dL (31-37) Red Cell Distribution Width 18.6 % (11.5-14.5) Platelet Count 185 x10^3/uL (140-400) Neutrophils (%) (Auto) 87 % (31-73) Lymphocytes (%) (Auto) 7 % (24-48) Monocytes (%) (Auto) 5 % (0-9) Eosinophils (%) (Auto) 0 % (0-3) Basophils (%) (Auto) 0 % (0-3) Neutrophils # (Auto) 8.0 x10^3/uL (1.8-7.7) Lymphocytes # (Auto) 0.7 x10^3/uL (1.0-4.8) Monocytes # (Auto) 0.5 x10^3/uL (0.0-1.1) Eosinophils # (Auto) 0.0 x10^3/uL (0.0-0.7) Basophils # (Auto) 0.0 x10^3/uL (0.0-0.2) Sodium Level 139 mmol/L (136-145) Potassium Level 5.1 mmol/L (3.5-5.1) Chloride Level 104 mmol/L (98-107) Carbon Dioxide Level 22 mmol/L (21-32) Anion Gap 13 (6-14) Blood Urea Nitrogen 56 mg/dL (7-20) Creatinine 2.5 mg/dL (0.6-1.0) Estimated GFR (Cockcroft-Gault) 18.3 Glucose Level 200 mg/dL (70-99) Calcium Level 8.7 mg/dL (8.5-10.1) Glucose (Fingerstick) 150 mg/dL (70-99) 167 mg/dL (70-99) 151 mg/dL (70-99) Test 02/03/21 06:30 02/03/21 06:35 02/03/21 07:10 Sodium Level 140 mmol/L (136-145) Potassium Level 4.9 mmol/L (3.5-5.1) Chloride Level 105 mmol/L (98-107) Carbon Dioxide Level 22 mmol/L (21-32) Anion Gap 13 (6-14) Blood Urea Nitrogen 70 mg/dL (7-20) Creatinine 2.5 mg/dL (0.6-1.0) Estimated GFR (Cockcroft-Gault) 18.3 Glucose Level 153 mg/dL (70-99) Calcium Level 8.5 mg/dL (8.5-10.1) White Blood Count 7.1 x10^3/uL (4.0-11.0) Red Blood Count 3.42 x10^6/uL (3.50-5.40) Hemoglobin 9.0 g/dL (12.0-15.5) Hematocrit 27.9 % (36.0-47.0) Mean Corpuscular Volume 82 fL (79-100) Mean Corpuscular Hemoglobin 26 pg (25-35) Mean Corpuscular Hemoglobin Concent 32 g/dL (31-37) Red Cell Distribution Width 17.8 % (11.5-14.5) Platelet Count 185 x10^3/uL (140-400) Neutrophils (%) (Auto) 85 % (31-73) Lymphocytes (%) (Auto) 8 % (24-48) Monocytes (%) (Auto) 7 % (0-9) Eosinophils (%) (Auto) 0 % (0-3) Basophils (%) (Auto) 0 % (0-3) Neutrophils # (Auto) 6.1 x10^3/uL (1.8-7.7) Lymphocytes # (Auto) 0.5 x10^3/uL (1.0-4.8) Monocytes # (Auto) 0.5 x10^3/uL (0.0-1.1) Eosinophils # (Auto) 0.0 x10^3/uL (0.0-0.7) Basophils # (Auto) 0.0 x10^3/uL (0.0-0.2) Glucose (Fingerstick) 150 mg/dL (70-99) Microbiology 02/01/21 Urine Culture - Final, Complete Medications Current Medications Ceftriaxone Sodium (Rocephin) 1 gm Q24H IVP Last administered on 02/02/21at 14:02; Start 02/02/21 at 13:00 Remdesivir 100 mg/ Sodium Chloride 230 ml @ 460 mls/hr Q24H IV ; Start 02/03/21 at 09:00; Stop 02/06/21 at 09:29 Remdesivir 200 mg/ Sodium Chloride 210 ml @ 210 mls/hr 1X ONCE IV Last administered on 02/02/21at 12:12; Start 02/02/21 at 11:00; Stop 02/02/21 at 11:59; Status DC Vitals/I & O Vital Sign - Last 24 Hours 02/02/21 02/02/21 02/02/21 02/02/21 09:10 10:17 11:32 12:10 Temp 97.9 97.9 Pulse 86 89 78 Resp 16 B/P (MAP) 123/72 (89) 125/73 (90) 111/75 (87) Pulse Ox 93 93 O2 Delivery BiPAP/CPAP BiPAP/CPAP 02/02/21 02/02/21 02/02/21 02/02/21 12:43 13:10 14:10 15:38 Pulse 72 82 Resp 16 B/P (MAP) 116/61 (79) 116/82 (93) Pulse Ox 94 94 94 O2 Delivery BiPAP/CPAP BiPAP/CPAP BiPAP/CPAP 02/02/21 02/02/21 02/02/21 02/02/21 17:10 19:53 19:55 20:41 Temp 96.6 96.6 Pulse 91 91 Resp 22 B/P (MAP) 127/86 (100) 127/86 Pulse Ox 92 95 O2 Delivery BiPAP/CPAP Bi-pap BiPAP/CPAP 02/02/21 02/02/21 02/02/21 02/03/21 20:50 23:00 23:05 02:26 Temp 96.5 96.5 Pulse 95 Resp 22 B/P (MAP) 132/85 (101) Pulse Ox 94 92 91 92 O2 Delivery BiPAP/CPAP BiPAP/CPAP BiPAP/CPAP BiPAP/CPAP 02/03/21 02/03/21 02/03/21 02/03/21 03:30 05:00 07:00 08:21 Temp 97.7 96.9 97.7 96.9 Pulse 94 90 Resp 22 28 B/P (MAP) 130/86 (101) 127/87 (100) Pulse Ox 88 88 90 91 O2 Delivery BiPAP/CPAP BiPAP/CPAP BiPAP/CPAP BiPAP/CPAP Intake and Output 02/02/21 02/02/21 02/03/21 15:00 23:00 07:00 Intake Total 0 ml 50 ml Output Total 1250 ml Balance 0 ml -1200 ml Justifications for Admission Other Justification JITENDRA RYDER MD Feb 03, 2021 09:08
[2021-02-03] MEDS: AMIODARONE HCL 200 MG TABLET. PO SCH ×2 (09:19→16:19)
[2021-02-03] MEDS: ASPIRIN ENTERIC COATED 81 MG TABLET.DR. PO SCH ×2 (09:19→16:19)
[2021-02-03] MEDS: APIXABAN 2.5 MG TABLET. PO SCH ×3 (09:19→20:39)
[2021-02-03] MEDS: ALPRAZolam 0.25 MG TABLET PO SCH ×3 (09:19→20:45)
[2021-02-03] MEDS: TORSEMIDE 20 MG TABLET. PO SCH ×2 (09:19→16:19)
[2021-02-03] MEDS: METOPROLOL TART IMMED RELEASE 50 MG TABLET. PO SCH ×3 (09:20→20:44)
[2021-02-03] MEDS: DEXAMETHASONE 4 MG TABLET PO SCH ×2 (09:20→16:19)
[2021-02-03] MEDS: REMDESIVIR 100mg in NORMAL SALINE 250ML X 4 DAYS IV SCH (09:21)
[2021-02-03 09:37] LABS: % BANDS 8 % (0-9); % LYMPHS 6 % (24-48); % MONOS 5 % (0-10); % MYELOS 1 % (0-0); % SEGS 80 % (35-66); NUCLEATED RBC 1; PLT ESTIMATE ADEQUATE (ADEQUATE)
[2021-02-03 09:38] LABS: ANISOCYTOSIS SLIGHT; POLYCHROMASIA SLIGHT
--- NOTE | 2021-02-03 10:41 | PDOC ---
PULMONARY PROGRESS NOTES DATE: 02/03/21 TIME: 10:38 Subjective Patient is currently on BiPAP at 75% FiO2. Vitals Vital Signs Date Time Temp Pulse Resp B/P (MAP) Pulse Ox O2 Delivery O2 Flow Rate FiO2 02/03/21 10:09 Nasal Cannula 15.0 02/03/21 08:21 91 02/03/21 07:00 96.9 90 28 127/87 (100) 96.9 Comments Visual exam done due to COVID-19 pandemic no paradoxical breathing No skin rash no leg edema General: Alert Labs Laboratory Tests Test 02/01/21 11:24 02/01/21 11:40 02/01/21 16:03 02/01/21 20:59 Glucose (Fingerstick) 188 mg/dL (70-99) 168 mg/dL (70-99) 165 mg/dL (70-99) SARS-CoV-2 Antigen (Rapid) Positive (NEGATIVE) Test 02/02/21 07:49 02/02/21 09:30 02/02/21 12:00 02/02/21 18:25 Glucose (Fingerstick) 150 mg/dL (70-99) 150 mg/dL (70-99) 167 mg/dL (70-99) White Blood Count 9.1 x10^3/uL (4.0-11.0) Red Blood Count 3.40 x10^6/uL (3.50-5.40) Hemoglobin 9.2 g/dL (12.0-15.5) Hematocrit 28.0 % (36.0-47.0) Mean Corpuscular Volume 82 fL (79-100) Mean Corpuscular Hemoglobin 27 pg (25-35) Mean Corpuscular Hemoglobin Concent 33 g/dL (31-37) Red Cell Distribution Width 18.6 % (11.5-14.5) Platelet Count 185 x10^3/uL (140-400) Neutrophils (%) (Auto) 87 % (31-73) Lymphocytes (%) (Auto) 7 % (24-48) Monocytes (%) (Auto) 5 % (0-9) Eosinophils (%) (Auto) 0 % (0-3) Basophils (%) (Auto) 0 % (0-3) Neutrophils # (Auto) 8.0 x10^3/uL (1.8-7.7) Lymphocytes # (Auto) 0.7 x10^3/uL (1.0-4.8) Monocytes # (Auto) 0.5 x10^3/uL (0.0-1.1) Eosinophils # (Auto) 0.0 x10^3/uL (0.0-0.7) Basophils # (Auto) 0.0 x10^3/uL (0.0-0.2) Sodium Level 139 mmol/L (136-145) Potassium Level 5.1 mmol/L (3.5-5.1) Chloride Level 104 mmol/L (98-107) Carbon Dioxide Level 22 mmol/L (21-32) Anion Gap 13 (6-14) Blood Urea Nitrogen 56 mg/dL (7-20) Creatinine 2.5 mg/dL (0.6-1.0) Estimated GFR (Cockcroft-Gault) 18.3 Glucose Level 200 mg/dL (70-99) Calcium Level 8.7 mg/dL (8.5-10.1) Test 02/02/21 21:06 02/03/21 06:30 02/03/21 06:35 02/03/21 07:10 Glucose (Fingerstick) 151 mg/dL (70-99) 150 mg/dL (70-99) Sodium Level 140 mmol/L (136-145) Potassium Level 4.9 mmol/L (3.5-5.1) Chloride Level 105 mmol/L (98-107) Carbon Dioxide Level 22 mmol/L (21-32) Anion Gap 13 (6-14) Blood Urea Nitrogen 70 mg/dL (7-20) Creatinine 2.5 mg/dL (0.6-1.0) Estimated GFR (Cockcroft-Gault) 18.3 Glucose Level 153 mg/dL (70-99) Calcium Level 8.5 mg/dL (8.5-10.1) White Blood Count 7.1 x10^3/uL (4.0-11.0) Red Blood Count 3.42 x10^6/uL (3.50-5.40) Hemoglobin 9.0 g/dL (12.0-15.5) Hematocrit 27.9 % (36.0-47.0) Mean Corpuscular Volume 82 fL (79-100) Mean Corpuscular Hemoglobin 26 pg (25-35) Mean Corpuscular Hemoglobin Concent 32 g/dL (31-37) Red Cell Distribution Width 17.8 % (11.5-14.5) Platelet Count 185 x10^3/uL (140-400) Neutrophils (%) (Auto) 85 % (31-73) Lymphocytes (%) (Auto) 8 % (24-48) Monocytes (%) (Auto) 7 % (0-9) Eosinophils (%) (Auto) 0 % (0-3) Basophils (%) (Auto) 0 % (0-3) Neutrophils # (Auto) 6.1 x10^3/uL (1.8-7.7) Lymphocytes # (Auto) 0.5 x10^3/uL (1.0-4.8) Monocytes # (Auto) 0.5 x10^3/uL (0.0-1.1) Eosinophils # (Auto) 0.0 x10^3/uL (0.0-0.7) Basophils # (Auto) 0.0 x10^3/uL (0.0-0.2) Segmented Neutrophils % 80 % (35-66) Band Neutrophils % 8 % (0-9) Lymphocytes % 6 % (24-48) Monocytes % 5 % (0-10) Myelocytes % 1 % (0-0) Nucleated Red Blood Cells 1 Platelet Estimate Adequate (ADEQUATE) Polychromasia Slight Anisocytosis Slight Laboratory Tests Test 02/02/21 12:00 02/02/21 18:25 02/02/21 21:06 02/03/21 06:30 Glucose (Fingerstick) 150 mg/dL (70-99) 167 mg/dL (70-99) 151 mg/dL (70-99) Sodium Level 140 mmol/L (136-145) Potassium Level 4.9 mmol/L (3.5-5.1) Chloride Level 105 mmol/L (98-107) Carbon Dioxide Level 22 mmol/L (21-32) Anion Gap 13 (6-14) Blood Urea Nitrogen 70 mg/dL (7-20) Creatinine 2.5 mg/dL (0.6-1.0) Estimated GFR (Cockcroft-Gault) 18.3 Glucose Level 153 mg/dL (70-99) Calcium Level 8.5 mg/dL (8.5-10.1) Test 02/03/21 06:35 02/03/21 07:10 White Blood Count 7.1 x10^3/uL (4.0-11.0) Red Blood Count 3.42 x10^6/uL (3.50-5.40) Hemoglobin 9.0 g/dL (12.0-15.5) Hematocrit 27.9 % (36.0-47.0) Mean Corpuscular Volume 82 fL (79-100) Mean Corpuscular Hemoglobin 26 pg (25-35) Mean Corpuscular Hemoglobin Concent 32 g/dL (31-37) Red Cell Distribution Width 17.8 % (11.5-14.5) Platelet Count 185 x10^3/uL (140-400) Neutrophils (%) (Auto) 85 % (31-73) Lymphocytes (%) (Auto) 8 % (24-48) Monocytes (%) (Auto) 7 % (0-9) Eosinophils (%) (Auto) 0 % (0-3) Basophils (%) (Auto) 0 % (0-3) Neutrophils # (Auto) 6.1 x10^3/uL (1.8-7.7) Lymphocytes # (Auto) 0.5 x10^3/uL (1.0-4.8) Monocytes # (Auto) 0.5 x10^3/uL (0.0-1.1) Eosinophils # (Auto) 0.0 x10^3/uL (0.0-0.7) Basophils # (Auto) 0.0 x10^3/uL (0.0-0.2) Segmented Neutrophils % 80 % (35-66) Band Neutrophils % 8 % (0-9) Lymphocytes % 6 % (24-48) Monocytes % 5 % (0-10) Myelocytes % 1 % (0-0) Nucleated Red Blood Cells 1 Platelet Estimate Adequate (ADEQUATE) Polychromasia Slight Anisocytosis Slight Glucose (Fingerstick) 150 mg/dL (70-99) Medications Active Scripts Medications Dose Route/Sig Max Daily Dose Days Date Category Eliquis (Apixaban) 2.5 Mg Tablet 2.5 Mg PO BID 02/01/21 Reported Klor-Con 10 (Potassium Chloride) 10 Meq Tablet.er 2 Tab PO DAILY 30 01/05/21 Rx Aspirin Ec (Aspirin) 81 Mg Tablet.dr 81 Mg PO DAILYWBKFT 30 01/05/21 Rx Torsemide 10 Mg Tablet 1 Tab PO DAILY 12/28/20 Reported Simvastatin 10 Mg Tablet 10 Mg PO HS 12/28/20 Reported Tylenol (Acetaminophen) 325 Mg Tablet 650 Mg PO PRN Q6HRS PRN 08/28/20 Reported Levothyroxine Sodium 25 Mcg Tablet 1 Tab PO DAILY 08/27/20 Reported Alprazolam 0.25 Mg Tablet 1 Tab PO BID 08/27/20 Reported Metoprolol Tartrate 100 Mg Tablet 1 Tab PO BID 08/27/20 Reported Amiodarone Hcl 200 Mg Tablet 1 Tab PO DAILY 02/21/18 Reported Impression . 1. Acute hypoxic respiratory failure. This is secondary to multifactorial etiologies. She has COVID-19 viral pneumonia/acute lung injury , she did received Vignesh and Vignesh vaccine 2 weeks ago, Other differential diagnosis would be interstitial edema. 2. The patient with a known biventricular failure. Previous cardiac catheterization with evidence of left heart failure with pulmonary capillary wedge pressure of 27 and secondary pulmonary hypertension. May benefit from mild diuresis. 3. No significant tobacco history. 4. Underlying morbid obesity. 5. Chronic kidney disease. 6. Markedly increased proBNP. Plan . 1. Discussed with RN. Her oxygen requirement has increased. Currently on 75% FiO2 via BiPAP. Will increase the FiO2 to keep saturations 92% and above. She is a DNR. 2. Covid positive./Acute lung injury/ARDS will continue with present dexamethasone and remdesivir along with empiric antibiotic. 3. Continue Eliquis. 4. Continue amiodarone. Possibility of amiodarone pneumonitis would also be a consideration in the differential diagnosis. 5. As needed diuresis with close monitoring of renal function. Her BUN has increased. 6. The patient is a DNR. 7. Discussed with RN. RACHELLE GAN MD Feb 03, 2021 10:41
--- NOTE | 2021-02-03 10:59 | NUR ---
Attempted to give patient morning medications & gave patient a drink of water first per her request, patient choked on water & spit most of it back up. Will make patient NPO for now. Left message with office for Dr. Meade to call back.
[2021-02-03 11:00] VITALS: BP 158/68
--- NOTE | 2021-02-03 11:02 | NUR ---
Patient told son on phone this morning that she wants to , that she is dying & wants everyone to come up.
--- NOTE | 2021-02-03 14:26 | NUR ---
SS following up with discharge planning. SS reviewed pt chart and discussed with pt RN. Pt is currently on the BIPAP at 80%. COVID19 positive. Pt on IV Remdesivir and IV Rocephin. Pt on PO Decadron. Triple Lumen PICC placed today. Pt NPO and on Clinimix. SS will continue to follow for discharge planning.
--- NOTE | 2021-02-03 14:48 | PDOC ---
CARDIO Progress Notes Date and Time Date of Service 02/03/21 Time of Evaluation 1210 Subjective Subjective: Other (on BiPAP, sleeping ) Vitals Vitals Vital Signs Date Time Temp Pulse Resp B/P (MAP) Pulse Ox O2 Delivery O2 Flow Rate FiO2 02/03/21 11:47 93 BiPAP/CPAP 02/03/21 11:00 97.1 92 24 158/68 (98) 97.1 02/03/21 10:09 15.0 Weight Weight [ ] Input and Output Intake and Output Intake and Output 02/03/21 07:00 Intake Total 50 ml Output Total 1250 ml Balance -1200 ml Intake Oral 50 ml Output Urine Total 1250 ml Laboratory Labs Laboratory Tests Test 02/02/21 18:25 02/02/21 21:06 02/03/21 06:30 02/03/21 06:35 Glucose (Fingerstick) 167 mg/dL (70-99) 151 mg/dL (70-99) Sodium Level 140 mmol/L (136-145) Potassium Level 4.9 mmol/L (3.5-5.1) Chloride Level 105 mmol/L (98-107) Carbon Dioxide Level 22 mmol/L (21-32) Anion Gap 13 (6-14) Blood Urea Nitrogen 70 mg/dL (7-20) Creatinine 2.5 mg/dL (0.6-1.0) Estimated GFR (Cockcroft-Gault) 18.3 Glucose Level 153 mg/dL (70-99) Calcium Level 8.5 mg/dL (8.5-10.1) White Blood Count 7.1 x10^3/uL (4.0-11.0) Red Blood Count 3.42 x10^6/uL (3.50-5.40) Hemoglobin 9.0 g/dL (12.0-15.5) Hematocrit 27.9 % (36.0-47.0) Mean Corpuscular Volume 82 fL (79-100) Mean Corpuscular Hemoglobin 26 pg (25-35) Mean Corpuscular Hemoglobin Concent 32 g/dL (31-37) Red Cell Distribution Width 17.8 % (11.5-14.5) Platelet Count 185 x10^3/uL (140-400) Neutrophils (%) (Auto) 85 % (31-73) Lymphocytes (%) (Auto) 8 % (24-48) Monocytes (%) (Auto) 7 % (0-9) Eosinophils (%) (Auto) 0 % (0-3) Basophils (%) (Auto) 0 % (0-3) Neutrophils # (Auto) 6.1 x10^3/uL (1.8-7.7) Lymphocytes # (Auto) 0.5 x10^3/uL (1.0-4.8) Monocytes # (Auto) 0.5 x10^3/uL (0.0-1.1) Eosinophils # (Auto) 0.0 x10^3/uL (0.0-0.7) Basophils # (Auto) 0.0 x10^3/uL (0.0-0.2) Segmented Neutrophils % 80 % (35-66) Band Neutrophils % 8 % (0-9) Lymphocytes % 6 % (24-48) Monocytes % 5 % (0-10) Myelocytes % 1 % (0-0) Nucleated Red Blood Cells 1 Platelet Estimate Adequate (ADEQUATE) Polychromasia Slight Anisocytosis Slight Test 02/03/21 07:10 02/03/21 11:12 Glucose (Fingerstick) 150 mg/dL (70-99) 144 mg/dL (70-99) Microbiology Micro Microbiology 02/01/21 Urine Culture - Final, Complete Physical Exam HEENT: Neck Supple W Full Motion Chest: Symmetric LUNGS: Other (BiPAP) Heart: irregularly irregular (AFIB ) Abdomen: Other (obese ) Extremities: Other (trace bilateral LE edema ) Neurology: other (sleeping ) Assessment Assessment 1. Acute hypoxic respiratory failure, multifactorial with COVID PNA and a/c CHF. S/p J & J vaccine 2 weeks ago. 2. Acute on chronic diastolic CHF; Echo 09/14 with LVEF 55 to 60%. RHC 01/14 showed moderate pulmonary hypertension probably secondary to increased left- sided filling pressures. 3. PAFIB with RVR; Rate controlled 4. SSS s/p PPM (Biotronik); Device check 10/15 with normal function and adequate battery life. AFIB burden 9% 5. Hypertension; controlled 6. Hyperlipidemia; statin 7. Diabetes, II 8. CKD 9. Hypothyroidism; Continue levothyroxine Recommendations Oral diuretics with close monitoring of renal function. Additional diuresis PRN Continue metoprolol for rate control Eliquis for stroke prophylaxis. Continue amiodarone unless ILD suspected. Ongoing lung optimization, treatment of COVID. Justicifation of Admission Dx: Justifications for Admission: Justification of Admission Dx: Yes ROVERTO ROSALES APRN Feb 03, 2021 14:48
--- NOTE | 2021-02-03 14:50 | NUR ---
Allergies and reactions nkda INR 1.6 BUN 70 Cr 2.5 Platelets 185 Blood culture done none blood culture results Order Verified yes Consent signed yes Previous PICC placement unknown Past Medical/Surgical history and current diagnosis reviewed yes Patient Medical /Surgical History Related to PICC line placement Arrhythmias -afib Diabetes History of bleeding, bruising, clotting disorder Infectious Disease consult Pacemaker Problems breathing lying flat Special considerations for PICC line placement None Anticoagulation therapy Arm contractures/ Compromised arm Burn(s) near insertion site Dermatitis Existing thrombosis/thrombophlebitis Infections Injured/sclerotic veins Open wound(s) near insertion site Scar(s) near insertion site Severe peripheral edema Using crutches PICC placement indication Caustic medication class drug usage, buttermaker continuous churn antibiotic usage, Multiple/ Frequent blood draws, Poor peripheral intravenous access Parenteral Nutrition (PPN) Amelie Ortega RN PICC Nurse Addendum: 02/03/21 at 1459 by AMELIE ORTEGA RN Amended: Links added.
--- NOTE | 2021-02-03 14:55 | NUR ---
Procedure: Following complete explanation of the PICC procedure including the indications, risks, and potential complications, informed consent was obtained. The possibility for infection was discussed along with signs, symptoms, and prevention. All the questions were answered.yes Written and verbal patient education was provided. yes Hand hygiene performed. yes Standardized central line checklist was utilized.yes The patient was placed in the supine position, the arm was prepped with chlorhexidine and patient draped with maximum sterile barrier. 4 mL 1% lidocaine was infiltrated into the skin to provide local anesthesia. A thorough assessment of right upper extremity completed. Using real-time ultrasound guidance and standardized micro puncture set, the basilic vein was attempted- unsuccessful Patient tolerated the procedure without apparent complication(s). Complications: unsuccessful attempts Addendum: 02/03/21 at 1459 by SAÚL GREEN RN Amended: Links added.
[2021-02-03] MEDS: IV NORMAL SALINE 1000ML BAG 1,000 ML IV SCH (15:00)
[2021-02-03 15:19] VITALS: BP 158/76
[2021-02-03] MEDS: cefTRIAXone IV Push 1 GM VIAL. IVP SCH (15:40)
[2021-02-03 19:40] VITALS: BP 125/79
--- NOTE | 2021-02-03 19:41 | RAD ---
Exam: Chest one view INDICATION: Frontal view of the chest TECHNIQUE: Frontal view of the chest Comparisons: 01/31/2021 FINDINGS: Right-sided PICC with tip at the SVC. Pacer with leads terminating the right atrium and ventricle. Heart is enlarged. Pulmonary vessels are obscured Hazy bilateral airspace disease. No pleural effusion. IMPRESSION: 1. Lines and tubes described above. 2. Extensive bilateral airspace disease relate to edema. Difficult to exclude superimposed infectiou s process. Electronically signed by: Claudio Mayfield MD (02/03/2021 7:39 PM) DENNIS
[2021-02-03] MEDS: SIMVASTATIN 10 MG TABLET PO SCH (20:45)
[2021-02-03] MEDS ORDERED: ENOXAPARIN 40 MG/0.4 ML SYRINGE. SQ SCH (21:00)
[2021-02-03] MEDS: AA 4.25 %/CALCIUM/LYTES/D5W 1,000 ML IV SCH (21:09)
[2021-02-03] MEDS: MORPHINE SULFATE 2 MG/ML INJ. IVP PRN (21:09)
[2021-02-03] MEDS ORDERED: SODIUM BICARB ADULT 8.4% 50 MEQ/50 ML DISP.SYRIN. IV ONE (22:15)
[2021-02-03 22:34] LABS: BASE EXCESS ABG -10 mmol/L (-3-3); HCO3 ABG 16 mmol/L (21-28); PCO2 ABG 32 mmHg (35-46); PO2 ABG 53 mmHg (65-108); SAT O2 ABG 80 % (92-99)
[2021-02-03 22:35] LABS: FIO2 ABG 90
[2021-02-03 23:10] VITALS: BP 134/87
[2021-02-04 03:25] VITALS: BP 131/92
[2021-02-04 07:00] VITALS: BP 187/68
[2021-02-04] MEDS: ASPIRIN ENTERIC COATED 81 MG TABLET.DR. PO SCH (08:00)
[2021-02-04] MEDS: INSULIN LISPRO 300 UNITS/3 ML VIAL. SQ SCH ×2 (08:00→12:00)
[2021-02-04] MEDS: DEXAMETHASONE 4 MG TABLET PO SCH (08:00)
[2021-02-04] MEDS: TORSEMIDE 20 MG TABLET. PO SCH (09:00)
[2021-02-04] MEDS: AMIODARONE HCL 200 MG TABLET. PO SCH (09:00)
[2021-02-04] MEDS: ALPRAZolam 0.25 MG TABLET PO SCH (09:00)
[2021-02-04] MEDS: METOPROLOL TART IMMED RELEASE 50 MG TABLET. PO SCH (09:00)
[2021-02-04] MEDS ORDERED: FUROSEMIDE 20 MG/2 ML VIAL. IVP ONE (09:15)
--- NOTE | 2021-02-04 09:16 | PDOC ---
PROGRESS NOTES Date of Service: DATE: 02/04/21 TIME: 09:12 Subjective Subjective pt not doing well on BIPAP 100% oxygen , sat barely 90 Objective Objective Vital Signs Date Time Temp Pulse Resp B/P (MAP) Pulse Ox O2 Delivery O2 Flow Rate FiO2 02/04/21 07:46 91 BiPAP/CPAP 02/04/21 07:00 98.0 99 17 187/68 (107) 98.0 02/03/21 10:09 15.0 Intake and Output 02/04/21 07:00 Intake Total 320 ml Output Total 900 ml Balance -580 ml Intake Oral 320 ml Output Urine Total 900 ml Physical Exam Physical Exam BIPAP Abdomen: Soft, No tenderness Heart: Normal S1, Normal S2, Other (Heart rate is irregular) Extremities: Other (Trace pitting edema) General: Alert, mild distress HEENT: Other (On BiPAP) Lungs: Other (Bilateral basal crepitations) MUSCULOSKELETAL: No joint tenderness, No deformity Neuro: Normal speech Psych/Mental Status: Mental status NL Diagnosis Problem List Problems Medical Problems: (1) Altered mental status Status: Acute (2) Chronic kidney disease Status: Acute (3) Shortness of breath Status: Acute Assessment Assessment Problems Medical Problems: (1) Altered mental status Status: Acute (2) Chronic kidney disease Status: Acute (3) Shortness of breath Status: Acute FINAL IMPRESSION: 1. Acute respiratory failure due to COVID pneumonia. 2. Acute on chronic systolic heart failure. 3. COVID infection Positive, high probability, all the family members have COVID. 4. Rule out underlying lung infection. 5. Coronary artery disease. 6. Atrial fibrillation with rapid ventricular response. 7. Chronic kidney disease, stage 4, creatinine clearance of 23. 8. Pickwickian syndrome with right heart failure. 9. General debility. PLAN: On BIPAP 100% oxygen on Remdesivir. cr 2.5 stable, CKD stage 4 kidney disease dexamethasone for covid Lovenox for DVT prevention,not taking oral eliquis IV Rocephin LAsix prn ,labs and cxr in am Pt is DNR,confirmed with son Poor prognosis Plan Plan of Care Problems Medical Problems: (1) Altered mental status Status: Acute (2) Chronic kidney disease Status: Acute (3) Shortness of breath Status: Acute Comment Review of Relevant I have reviewed the following items shana (where applicable) has been applied. Labs Laboratory Tests Test 8/10/21 11:12 02/03/21 16:17 02/03/21 20:52 02/03/21 21:25 Glucose (Fingerstick) 144 mg/dL (70-99) 164 mg/dL (70-99) 159 mg/dL (70-99) O2 Saturation 80 % (92-99) Arterial Blood pH 7.30 (7.35-7.45) Arterial Blood pCO2 at Patient Temp 32 mmHg (35-46) Arterial Blood pO2 at Patient Temp 53 mmHg (65-108) Arterial Blood HCO3 16 mmol/L (21-28) Arterial Blood Base Excess -10 mmol/L (-3-3) FiO2 90 Test 02/04/21 08:34 Glucose (Fingerstick) 97 mg/dL (70-99) Microbiology 02/01/21 Urine Culture - Final, Complete Medications Current Medications Amino Acids/ Electrolytes/ Dextrose 1,000 ml @ 50 mls/hr Q20H IV Last administered on 02/03/21at 21:09; Start 02/03/21 at 12:15 Diltiazem HCl 125 mg/Sodium Chloride 125 ml @ 5 mls/hr CONT PRN IV SEE I/O RECORD; Start 02/03/21 at 12:15 Enoxaparin Sodium (Lovenox 40mg Syringe) 40 mg QHS SQ Last administered on 02/03/21at 21:08; Start 02/03/21 at 21:00 Lorazepam (Ativan Inj) 0.25 mg PRN Q8HRS PRN IVP ANXIETY / AGITATION Last administered on 02/04/21at 01:03; Start 02/03/21 at 20:45 Morphine Sulfate (Morphine Sulfate) 2 mg PRN Q3HRS PRN IVP PAIN Last administered on 02/03/21at 21:09; Start 02/03/21 at 20:45 Sodium Bicarbonate (Sodium Bicarb Adult 8.4% Syr) 50 meq 1X ONCE IV Last administered on 02/03/21at 22:22; Start 02/03/21 at 22:15; Stop 02/03/21 at 22:16; Status DC Vitals/I & O Vital Sign - Last 24 Hours 02/03/21 02/03/21 02/03/21 02/03/21 10:09 11:00 11:47 15:19 Temp 97.1 97.0 97.1 97.0 Pulse 92 104 Resp 24 28 B/P (MAP) 158/68 (98) 158/76 (103) Pulse Ox 91 93 90 O2 Delivery Nasal Cannula BiPAP/CPAP BiPAP/CPAP BiPAP/CPAP O2 Flow Rate 15.0 02/03/21 02/03/21 02/03/21 02/03/21 16:12 16:19 16:19 19:40 Temp 97.8 97.8 Pulse 104 104 81 Resp 24 B/P (MAP) 158/76 158/76 125/79 (94) Pulse Ox 87 86 O2 Delivery BiPAP/CPAP BiPAP/CPAP 02/03/21 02/03/21 02/03/21 02/03/21 19:49 21:05 21:09 21:39 Resp 30 24 Pulse Ox 86 84 O2 Delivery Bi-pap BiPAP/CPAP BiPAP/CPAP BiPAP/CPAP 02/03/21 02/03/21 02/04/21 02/04/21 22:30 23:10 01:37 03:05 Temp 97.1 97.1 Pulse 88 Resp 28 B/P (MAP) 134/87 (103) Pulse Ox 83 87 89 88 O2 Delivery BiPAP/CPAP BiPAP/CPAP BiPAP/CPAP BiPAP/CPAP 02/04/21 02/04/21 02/04/21 02/04/21 03:25 06:00 07:00 07:46 Temp 97.2 98.0 97.2 98.0 Pulse 103 99 Resp 22 17 B/P (MAP) 131/92 (105) 187/68 (107) Pulse Ox 90 86 88 91 O2 Delivery BiPAP/CPAP BiPAP/CPAP BiPAP/CPAP BiPAP/CPAP Intake and Output 02/03/21 02/03/21 02/04/21 15:00 23:00 07:00 Intake Total 320 ml 0 ml 0 ml Output Total 600 ml 300 ml Balance 320 ml -600 ml -300 ml Justifications for Admission Other Justification JITENDRA RYDER MD Feb 04, 2021 09:15
[2021-02-04] MEDS: REMDESIVIR 100mg in NORMAL SALINE 250ML X 4 DAYS IV SCH (10:09)
--- NOTE | 2021-02-04 10:23 | PDOC ---
PULMONARY PROGRESS NOTES DATE: 02/04/21 TIME: 10:08 Subjective Patient remains on 100% BiPAP, with hypoxia on examination, oxygen saturations are 85% Afebrile overnight Is lethargic on examination Vitals Vital Signs Date Time Temp Pulse Resp B/P (MAP) Pulse Ox O2 Delivery O2 Flow Rate FiO2 02/04/21 09:51 86 BiPAP/CPAP 02/04/21 07:00 98.0 99 17 187/68 (107) 98.0 02/03/21 10:09 15.0 Comments Visual exam done due to COVID-19 pandemic no paradoxical breathing Tachypneic Hypoxia BiPAP 100% No skin rash no leg edema General: Alert Labs Laboratory Tests Test 02/02/21 12:00 02/02/21 18:25 02/02/21 21:06 02/03/21 06:30 Glucose (Fingerstick) 150 mg/dL (70-99) 167 mg/dL (70-99) 151 mg/dL (70-99) Sodium Level 140 mmol/L (136-145) Potassium Level 4.9 mmol/L (3.5-5.1) Chloride Level 105 mmol/L (98-107) Carbon Dioxide Level 22 mmol/L (21-32) Anion Gap 13 (6-14) Blood Urea Nitrogen 70 mg/dL (7-20) Creatinine 2.5 mg/dL (0.6-1.0) Estimated GFR (Cockcroft-Gault) 18.3 Glucose Level 153 mg/dL (70-99) Calcium Level 8.5 mg/dL (8.5-10.1) Test 02/03/21 06:35 02/03/21 07:10 02/03/21 11:12 02/03/21 16:17 White Blood Count 7.1 x10^3/uL (4.0-11.0) Red Blood Count 3.42 x10^6/uL (3.50-5.40) Hemoglobin 9.0 g/dL (12.0-15.5) Hematocrit 27.9 % (36.0-47.0) Mean Corpuscular Volume 82 fL (79-100) Mean Corpuscular Hemoglobin 26 pg (25-35) Mean Corpuscular Hemoglobin Concent 32 g/dL (31-37) Red Cell Distribution Width 17.8 % (11.5-14.5) Platelet Count 185 x10^3/uL (140-400) Neutrophils (%) (Auto) 85 % (31-73) Lymphocytes (%) (Auto) 8 % (24-48) Monocytes (%) (Auto) 7 % (0-9) Eosinophils (%) (Auto) 0 % (0-3) Basophils (%) (Auto) 0 % (0-3) Neutrophils # (Auto) 6.1 x10^3/uL (1.8-7.7) Lymphocytes # (Auto) 0.5 x10^3/uL (1.0-4.8) Monocytes # (Auto) 0.5 x10^3/uL (0.0-1.1) Eosinophils # (Auto) 0.0 x10^3/uL (0.0-0.7) Basophils # (Auto) 0.0 x10^3/uL (0.0-0.2) Segmented Neutrophils % 80 % (35-66) Band Neutrophils % 8 % (0-9) Lymphocytes % 6 % (24-48) Monocytes % 5 % (0-10) Myelocytes % 1 % (0-0) Nucleated Red Blood Cells 1 Platelet Estimate Adequate (ADEQUATE) Polychromasia Slight Anisocytosis Slight Glucose (Fingerstick) 150 mg/dL (70-99) 144 mg/dL (70-99) 164 mg/dL (70-99) Test 02/03/21 20:52 02/03/21 21:25 02/04/21 08:34 Glucose (Fingerstick) 159 mg/dL (70-99) 97 mg/dL (70-99) O2 Saturation 80 % (92-99) Arterial Blood pH 7.30 (7.35-7.45) Arterial Blood pCO2 at Patient Temp 32 mmHg (35-46) Arterial Blood pO2 at Patient Temp 53 mmHg (65-108) Arterial Blood HCO3 16 mmol/L (21-28) Arterial Blood Base Excess -10 mmol/L (-3-3) FiO2 90 Laboratory Tests Test 02/03/21 11:12 02/03/21 16:17 02/03/21 20:52 02/03/21 21:25 Glucose (Fingerstick) 144 mg/dL (70-99) 164 mg/dL (70-99) 159 mg/dL (70-99) O2 Saturation 80 % (92-99) Arterial Blood pH 7.30 (7.35-7.45) Arterial Blood pCO2 at Patient Temp 32 mmHg (35-46) Arterial Blood pO2 at Patient Temp 53 mmHg (65-108) Arterial Blood HCO3 16 mmol/L (21-28) Arterial Blood Base Excess -10 mmol/L (-3-3) FiO2 90 Test 02/04/21 08:34 Glucose (Fingerstick) 97 mg/dL (70-99) Medications Active Scripts Medications Dose Route/Sig Max Daily Dose Days Date Category Eliquis (Apixaban) 2.5 Mg Tablet 2.5 Mg PO BID 02/01/21 Reported Klor-Con 10 (Potassium Chloride) 10 Meq Tablet.er 2 Tab PO DAILY 01/05/21 Rx Aspirin Ec (Aspirin) 81 Mg Tablet.dr 81 Mg PO DAILYWBKFT 30 01/05/21 Rx Torsemide 10 Mg Tablet 1 Tab PO DAILY 12/28/20 Reported Simvastatin 10 Mg Tablet 10 Mg PO HS 12/28/20 Reported Tylenol (Acetaminophen) 325 Mg Tablet 650 Mg PO PRN Q6HRS PRN 08/28/20 Reported Levothyroxine Sodium 25 Mcg Tablet 1 Tab PO DAILY 08/27/20 Reported Alprazolam 0.25 Mg Tablet 1 Tab PO BID 08/27/20 Reported Metoprolol Tartrate 100 Mg Tablet 1 Tab PO BID 08/27/20 Reported Amiodarone Hcl 200 Mg Tablet 1 Tab PO DAILY 02/21/18 Reported Impression . 1. Acute hypoxic respiratory failure. This is secondary to multifactorial etiologies. She has COVID-19 viral pneumonia/acute lung injury , she did received Vignesh and Vignesh vaccine 2 weeks ago, Other differential diagnosis would be interstitial edema. 2. The patient with a known biventricular failure. Previous cardiac catheterization with evidence of left heart failure with pulmonary capillary wedge pressure of 27 and secondary pulmonary hypertension. May benefit from mild diuresis. 3. No significant tobacco history. 4. Underlying morbid obesity. 5. Chronic kidney disease. 6. Markedly increased proBNP. Plan . Updated 02/04/21 Continue current BiPAP requirements at 100%, hypoxic on examination, patient is a DO NOT RESUSCITATE/DO NOT INTUBATE, continues to clinically decompensate will discuss with family in regards to possible hospice/palliative care BiPAP settings reviewed: 13/04 with a rate of 16 and 100%, will increase the IPAP to 20 Follow chest x-ray and ABG as needed Follow cardiology recommendations Continuing antibiotics Continue remdesivir Continue steroids with slow taper, started 02/01/2021 Continue PPN for nutritional support Is a DO NOT RESUSCITATE, with a poor prognosis, will discuss hospice/palliative care with family DVT/GI PPX 1. Discussed with RN. Her oxygen requirement has increased. Currently on 75% FiO2 via BiPAP. Will increase the FiO2 to keep saturations 92% and above. She is a DNR. 2. Covid positive./Acute lung injury/ARDS will continue with present dexamethasone and remdesivir along with empiric antibiotic. 3. Continue Eliquis. 4. Continue amiodarone. Possibility of amiodarone pneumonitis would also be a consideration in the differential diagnosis. 5. As needed diuresis with close monitoring of renal function. Her BUN has increased. 6. The patient is a DNR. 7. Discussed with RN. RACHELLE GAN MD Feb 04, 2021 10:23
--- NOTE | 2021-02-04 10:36 | NUR ---
SS following up with discharge planning. SS reviewed pt chart and discussed with pt RN. Pt is currently on BIPAP at 100%. COVID19 positive. Pt on IV Remdesivr, IV Rocephin, and Clinimax. DNR. Prognosis poor. SS and RN, Danika, spoke with pt's sonPardeep over the phone and discussed goals of care. Pt's son reported that pt does NOT want any extreme measures. Pt's family requesting comfort measures only at this time. Referral to inpatient hospice discussed and pt's son agreeable. SS phoned and faxed referral to [facility], ; fax [phone]. Pt's daughter contacted SS and agreed with plan of care. SS will continue to follow for discharge planning.
[2021-02-04 11:00] VITALS: BP 152/90
[2021-02-04] MEDS: IV NORMAL SALINE 1000ML BAG 1,000 ML IV SCH (11:00)
--- NOTE | 2021-02-04 11:02 | PDOC ---
CARDIO Progress Notes Date and Time Date of Service 02/04/21 Time of Evaluation 1100 Subjective Subjective: Other (on BiPAP) Vitals Vitals Vital Signs Date Time Temp Pulse Resp B/P (MAP) Pulse Ox O2 Delivery O2 Flow Rate FiO2 02/04/21 09:51 86 BiPAP/CPAP 02/04/21 07:00 98.0 99 17 187/68 (107) 98.0 02/03/21 10:09 15.0 Weight Weight [ ] Input and Output Intake and Output Intake and Output 02/04/21 07:00 Intake Total 320 ml Output Total 900 ml Balance -580 ml Intake Oral 320 ml Output Urine Total 900 ml Laboratory Labs Laboratory Tests Test 02/03/21 11:12 02/03/21 16:17 02/03/21 20:52 02/03/21 21:25 Glucose (Fingerstick) 144 mg/dL (70-99) 164 mg/dL (70-99) 159 mg/dL (70-99) O2 Saturation 80 % (92-99) Arterial Blood pH 7.30 (7.35-7.45) Arterial Blood pCO2 at Patient Temp 32 mmHg (35-46) Arterial Blood pO2 at Patient Temp 53 mmHg (65-108) Arterial Blood HCO3 16 mmol/L (21-28) Arterial Blood Base Excess -10 mmol/L (-3-3) FiO2 90 Test 02/04/21 08:34 Glucose (Fingerstick) 97 mg/dL (70-99) Microbiology Micro Microbiology 02/01/21 Urine Culture - Final, Complete Physical Exam HEENT: Neck Supple W Full Motion Chest: Symmetric LUNGS: Other (BiPAP) Heart: irregularly irregular (AFIB ) Abdomen: Other (obese ) Extremities: Other (trace bilateral LE edema ) Neurology: other (sleeping ) Assessment Assessment 1. Acute hypoxic respiratory failure, multifactorial with COVID PNA and a/c CHF. 2. Acute on chronic diastolic CHF; Echo 09/14 with LVEF 55 to 60%. RHC 01/14 showed moderate pulmonary hypertension probably secondary to increased left- sided filling pressures. 3. PAFIB with RVR; Rate controlled 4. SSS s/p PPM (Biotronik); Device check 10/15 with normal function and adequate battery life. AFIB burden 9% 5. Hypertension; controlled 6. Hyperlipidemia; statin 7. Diabetes, II 8. CKD 9. Hypothyroidism; Continue levothyroxine Recommendations Continue metoprolol for rate control BiPAP support Plan for inpatient Hospice Will sign off. Justicifation of Admission Dx: Justifications for Admission: Justification of Admission Dx: Yes ROVERTO ROSALES APRN Feb 04, 2021 11:02
[2021-02-04] MEDS: cefTRIAXone IV Push 1 GM VIAL. IVP SCH (13:22)
[2021-02-04] MEDS: MORPHINE SULFATE 2 MG/ML INJ. IVP PRN ×3 (14:08→14:38)
[2021-02-04] MEDS: AA 4.25 %/CALCIUM/LYTES/D5W 1,000 ML IV SCH (14:09)
--- NOTE | 2021-02-04 14:45 | NUR ---
Entered pty room to assess status due to O2 sat 78%. Administered MS04 prn air hunger. Sats continued to drop. Pt was pronounced at 1436. RT in room and second RN at bedside to verify time of . Pt daughter was notified of at 1445. Emotional support given. She will CB with name of home.
== END 2021-02-04 17:20 | DRG 177 ==
LOC: ER 21:33 → 5 NORTH 02-01 00:52 → 6 SOUTH 02-01 07:28
PROVIDERS: ADMIT Internal Medicine; ATTEND Internal Medicine
PROC: 5A0935A Assistance with Respiratory Ventilation, Less than 24 Consecutive Hours, High Flow/Velocity Cannula (ICD-10-PCS; principal; 2021-02-01)
PROC: 5A09357 Assistance with Respiratory Ventilation, Less than 24 Consecutive Hours, Continuous Positive Airway Pressure (ICD-10-PCS; 2021-02-01)
PROC: XW033E5 Introduction of Remdesivir Anti-infective into Peripheral Vein, Percutaneous Approach, New Technology Group 5 (ICD-10-PCS; 2021-02-02)
PROC: 5A09357 Assistance with Respiratory Ventilation, Less than 24 Consecutive Hours, Continuous Positive Airway Pressure (ICD-10-PCS; 2021-02-02)
PROC: 5A09357 Assistance with Respiratory Ventilation, Less than 24 Consecutive Hours, Continuous Positive Airway Pressure (ICD-10-PCS; 2021-02-03)
PROC: 02HV33Z Insertion of Infusion Device into Superior Vena Cava, Percutaneous Approach (ICD-10-PCS; 2021-02-03)
PROC: B548ZZA Ultrasonography of Superior Vena Cava, Guidance (ICD-10-PCS; 2021-02-03)
DX: U07.1 COVID-19 (principal); J96.01 Acute respiratory failure with hypoxia; I50.43 Acute on chronic combined systolic (congestive) and diastolic (congestive) heart failure; J12.82 Pneumonia due to coronavirus disease 2019; E66.2 Morbid (severe) obesity with alveolar hypoventilation; I13.0 Hypertensive heart and chronic kidney disease with heart failure and stage 1 through stage 4 chronic kidney disease, or unspecified chronic kidney disease; I48.19 Other persistent atrial fibrillation; J44.0 Chronic obstructive pulmonary disease with (acute) lower respiratory infection; N18.4 Chronic kidney disease, stage 4 (severe); Z68.42 Body mass index [BMI] 45.0-49.9, adult; E03.9 Hypothyroidism, unspecified; E11.22 Type 2 diabetes mellitus with diabetic chronic kidney disease; E78.00 Pure hypercholesterolemia, unspecified; E78.5 Hyperlipidemia, unspecified; I25.10 Atherosclerotic heart disease of native coronary artery without angina pectoris; I27.29 Other secondary pulmonary hypertension; I50.82 Biventricular heart failure; Z66 Do not resuscitate; Z79.01 Long term (current) use of anticoagulants; Z99.81 Dependence on supplemental oxygen; K57.90 Diverticulosis of intestine, part unspecified, without perforation or abscess without bleeding; Z79.899 Other long term (current) drug therapy
CPT/HCPCS: 36415; 36569; 36600; 70450; 71045; 80048; 80053; 81001; 82140; 82805; 82962; 83735; 83880; 84484; 85007; 85025; 85610; 85730; 87086; 87426; 93005; 93971; 94660; 96365; 96375; J0696; J1100; J1650; J1815; J1940; J2060; J2270; J3490; J7050; 99285-25; J7030